=== PATIENT | male | born 1980 | race Caucasian/White ===

== ENCOUNTER 2017-03-24 03:43 | Inpatient (IN) | payer MEDICARE, MEDICAID ==
[~2017-03-24] VITALS: Ht 193 cm; Wt 107.6 kg
[2017-03-24] VITALS (58 sets, daily range): BP systolic 51–178; BP diastolic 9–124
[2017-03-24] MEDS ORDERED: normal saline 1000ml 1,000 ML IV SCH (05:07)
[2017-03-24] MEDS ORDERED: magnesium hydroxide 30ml (MOM) UD suspension PO PRN (05:10)
[2017-03-24] MEDS ORDERED: ondansetron/PF 4mg/2ml inj IV PRN (05:10)
[2017-03-24] MEDS ORDERED: acetaminophen 325mg tablet PO PRN ×2 (05:10)
[2017-03-24] MEDS ORDERED: HYDROmorphone 1 mg/ml syringe IV PRN (05:20)
[2017-03-24] MEDS ORDERED: heparin 10,000 units/1 ML INJ IV ONE (05:30)
[2017-03-24] MEDS ORDERED: acetylcysteine 200 MG/ml 4ml vial PO ONE (06:05)
[2017-03-24] MEDS ORDERED: HYDROmorphone 1 mg/ml syringe IV ONE (06:10)
[2017-03-24 06:39] LABS: BASOPHILS % (AUTO) 0 % (0-1); EOSINOPHILS # (AUTO) 0.3 X10'3 (0-0.9); HEMATOCRIT 32.4 % (42.0-52.0); HEMOGLOBIN 10.9 g/dl (14.0-17.9); LYMPHOCYTES # (AUTO) 0.4 X10'3 (1.1-4.8); LYMPHOCYTES % (AUTO) 3.2 % (21-51); MEAN CORPUSCULAR HEMOGLOBIN 29.8 PG (27.0-31.0); MEAN CORPUSCULAR HGB CONC 33.7 % (33.0-36.5); MEAN CORPUSCULAR VOLUME 88.6 FL (78-98); MEAN PLATELET VOLUME 7.9 FL (7.4-10.4); MONOCYTES # (AUTO) 0.3 X10'3 (0-0.9); MONOCYTES % (AUTO) 2.4 % (2-12); NEUTROPHILS # (AUTO) 12.5 X10'3 (1.8-7.7); NEUTROPHILS % (AUTO) 92.4 % (42-75); PLATELET COUNT 170 X10'3 (140-440); RED BLOOD COUNT 3.65 X10'6 (4.70-6.10); RED CELL DISTRIBUTION WIDTH 19.5 % (11.5-14.5); WHITE BLOOD COUNT 13.6 X10'3 (4.5-11.0)
[2017-03-24 06:52] LABS: PARTIAL THROMBOPLASTIN TIME 31 SECONDS (22-32); PROTHROMBIN TIME 10.3 SECONDS (9.0-12.0)
[2017-03-24 07:09] LABS: ALANINE AMINOTRANSFERASE 27 U/L (12-78); ALBUMIN 4.3 G/DL (3.4-5.0); ALKALINE PHOSPHATASE 53 IU/L (46-116); ANION GAP 14 (8-16); ASPARTATE AMINO TRANSFERASE 26 U/L (10-37); BILIRUBIN,TOTAL 0.5 MG/DL (0.1-1.0); BLOOD UREA NITROGEN 50 MG/DL (7-18); BUN/CREATININE RATIO 20.8 (5.4-32.0); CALCIUM 6.3 MG/DL (8.5-10.1); CHLORIDE 107 MMOL/L (99-107); GLUCOSE 136 MG/DL (70-104); MAGNESIUM 1.8 MG/DL (1.5-2.4); PHOSPHORUS 4.4 MG/DL (2.3-4.5); POTASSIUM 5.9 MMOL/L (3.5-5.1); SODIUM 141 MMOL/L (135-145); TOTAL CARBON DIOXIDE 19.7 MMOL/L (24-32); TOTAL PROTEIN 8.4 G/DL (6.4-8.2); TROPONIN I < 0.04 NG/ML (0.0-0.05); eGFR 30 ML/MIN
[2017-03-24 07:11] LABS: CREATINE KINASE 1109 U/L (39-308)
[2017-03-24] MEDS ORDERED: PRED5TAB PO (08:28)
[2017-03-24] MEDS ORDERED: HYDROmorphone inj. 0.5 MG/0.5 ML DISP.SYRIN ONE (09:23)
[2017-03-24] MEDS: sodium bicarbonate (8.4%) inj. 150 MEQ in dextrose 5%-water 1,000 ML IV SCH ×3 (09:39→20:33)
[2017-03-24] MEDS: pantoprazole 40 MG vial IV SCH (09:51)
[2017-03-24] MEDS: ACETYLCYSTEINE 200 MG/ML PO SCH ×2 (09:51→20:34)
[2017-03-24] MEDS ORDERED: albuterol 2.5 MG/3 ML nebule CONTNEB STA (09:59)
[2017-03-24] MEDS ORDERED: insulin regular, human 10 units/0.1 ml syringe IV ONE (10:00)
[2017-03-24] MEDS ORDERED: etomidate 2mg/ml inj. ONE (10:00)
[2017-03-24] MEDS ORDERED: dextrose 50%-water 50ml dispensing syringe IV ONE (10:00)
[2017-03-24] MEDS ORDERED: fentaNYL/PF 50MCG/1 ML 2ML syringe IV PRN (10:35)
[2017-03-24] MEDS ORDERED: LIDOcaine 1%/PF (10mg/ml) 5ml vial SQ ONE (10:35)
[2017-03-24] MEDS ORDERED: midazolam 2 mg/2 ml injection IV PRN (10:35)
[2017-03-24] MEDS ORDERED: heparin 1,000 UNITS/NS 500ml 500 ML ONE ×4 (10:45→13:51)
[2017-03-24] MEDS ORDERED: LIDOcaine 1%/PF (10mg/ml) 5ml vial ONE ×2 (10:45→14:13)
[2017-03-24] MEDS ORDERED: iohexol 300mg/ml 100ml inj. ONE (10:46)
[2017-03-24] MEDS ORDERED: midazolam 2 mg/2 ml injection ONE ×6 (11:12→14:32)
[2017-03-24] MEDS ORDERED: fentaNYL/PF 50MCG/1 ML 2ML syringe ONE ×3 (11:12→12:26)
[2017-03-24] MEDS ORDERED: heparin 1,000unit/ml 10ml vial 0 ML ONE (11:47)
[2017-03-24] MEDS ORDERED: tPA-cathflo 2 MG/2 ml IV flush ONE (12:33)
[2017-03-24] MEDS ORDERED: heparin 1,000 UNITS/NS 500ml 500 ML IV SCH (12:40)
[2017-03-24] MEDS ORDERED: tPA-cathflo 2mg/2ml IV flush 4 MG in normal saline 100ml IV soln 100 ML IVF ONE (12:45)
[2017-03-24] MEDS ORDERED: succinylcholine 20mg/ml inj IV ONE ×2 (13:03→16:25)
[2017-03-24] MEDS ORDERED: propofol 1000mg/100ml bottle 100 ML IV ONE ×2 (13:30→15:48)
[2017-03-24] MEDS ORDERED: ondansetron/PF 4mg/2ml inj ONE (14:03)
[2017-03-24] MEDS ORDERED: iohexol 300 MG/1 ML 50ml polymer ONE (14:19)
[2017-03-24] MEDS ORDERED: MYCO250C PO (14:30)
[2017-03-24] MEDS ORDERED: TACR1CAP28 PO ×2 (14:30)
[2017-03-24] MEDS ORDERED: GABA-532 PO (14:30)
[2017-03-24] MEDS ORDERED: etomidate 2mg/ml inj. IV ONE (16:25)
[2017-03-24] MEDS ORDERED: ondansetron/PF 4mg/2ml inj IV ONE (16:25)
[2017-03-24] MEDS ORDERED: propofol 1000mg/100ml bottle 100 ML IV PRN (16:31)
[2017-03-24] MEDS ORDERED: propofol 10mg/ml 20ml vial IV PRN (16:35)
[2017-03-24 16:46] LABS: ABG BASE EXCESS -6.3 mmol/L (-2.0-3.0); ABG HCO3 20.1 mmol/L (22.0-26.0); ABG OXYGEN SATURATION 99.2 % (95-98); ABG PCO2 (T) 43.6 mmHg (35.0-48.0); ABG PH (T) 7.281 (7.350-7.450); ABG PO2 (T) 387.5 mmHg (83-108); ALLEN'S TEST Positive; FMetHb 0.1 % (0.3-1.12); FO2Hb 99.1 % (94-100); MINUTE VOLUME 10 L/min; PEEP 5 cm H2O; RESPIRATORY RATE 16 b/min; RESPIRATORY RATE (OBSERVED) 16 b/min; TOTAL HEMOGLOBIN 10.6 G/dl (14.0-18.0)
[2017-03-24] MEDS: heparin 10,000 units/1 ML INJ IV PRN ×2 (18:00→23:37)
[2017-03-24] MEDS: midazolam 100mg in NS 100ml 100 ML IV PRN (19:49)
[2017-03-24] MEDS: FENTANYL-0.9 % NACL/PF 100 ML IV PRN (19:49)
[2017-03-24] MEDS: mycophenolate mofetil 250mg capsule PO SCH ×2 (20:00→21:50)
[2017-03-24] MEDS: predniSONE 5mg tablet PO SCH (20:34)
[2017-03-24] MEDS: gabapentin 300mg capsule PO SCH (20:34)
[2017-03-24] MEDS: tacrolimus anhydrous 1mg capsule PO SCH (21:50)
[2017-03-25] VITALS (24 sets, daily range): BP systolic 82–131; BP diastolic 48–76
[2017-03-25 02:41] LABS: BASOPHILS % (AUTO) 0.2 % (0-1); EOSINOPHILS # (AUTO) 0.3 X10'3 (0-0.9); EOSINOPHILS % (AUTO) 3.5 % (0-6); HEMATOCRIT 27.5 % (42.0-52.0); LYMPHOCYTES # (AUTO) 0.4 X10'3 (1.1-4.8); LYMPHOCYTES % (AUTO) 5.9 % (21-51); MEAN CORPUSCULAR HEMOGLOBIN 29.4 PG (27.0-31.0); MEAN CORPUSCULAR HGB CONC 32.8 % (33.0-36.5); MEAN CORPUSCULAR VOLUME 89.8 FL (78-98); MEAN PLATELET VOLUME 7.6 FL (7.4-10.4); MONOCYTES # (AUTO) 0.4 X10'3 (0-0.9); MONOCYTES % (AUTO) 4.8 % (2-12); NEUTROPHILS # (AUTO) 6.4 X10'3 (1.8-7.7); NEUTROPHILS % (AUTO) 85.6 % (42-75); PLATELET COUNT 128 X10'3 (140-440); RED BLOOD COUNT 3.07 X10'6 (4.70-6.10); RED CELL DISTRIBUTION WIDTH 19.1 % (11.5-14.5); WHITE BLOOD COUNT 7.5 X10'3 (4.5-11.0)
[2017-03-25 02:56] LABS: ABG BASE EXCESS -1.6 mmol/L (-2.0-3.0); ABG HCO3 24.1 mmol/L (22.0-26.0); ABG OXYGEN SATURATION 97.5 % (95-98); ABG PCO2 (T) 43.6 mmHg (35.0-48.0); ABG PH (T) 7.358 (7.350-7.450); ABG PO2 (T) 101.1 mmHg (83-108); ALLEN'S TEST Positive; FCOHb 0.4 % (0.5-1.5); FMetHb 0.1 % (0.3-1.12); PATIENT TEMPERATURE 36.6; PEEP 5 cm H2O; RESPIRATORY RATE 18 b/min; RESPIRATORY RATE (OBSERVED) 20 b/min; TOTAL HEMOGLOBIN 12.8 G/dl (14.0-18.0)
[2017-03-25 02:59] LABS: ALANINE AMINOTRANSFERASE 25 U/L (12-78); ALBUMIN 3.4 G/DL (3.4-5.0); ANION GAP 10 (8-16); ASPARTATE AMINO TRANSFERASE 74 U/L (10-37); BILIRUBIN,TOTAL 0.4 MG/DL (0.1-1.0); BLOOD UREA NITROGEN 44 MG/DL (7-18); BUN/CREATININE RATIO 16.9 (5.4-32.0); CHLORIDE 107 MMOL/L (99-107); GLUCOSE 132 MG/DL (70-104); MAGNESIUM 1.8 MG/DL (1.5-2.4); PHOSPHORUS 5.3 MG/DL (2.3-4.5); POTASSIUM 4.4 MMOL/L (3.5-5.1); SODIUM 144 MMOL/L (135-145); TOTAL CARBON DIOXIDE 26.9 MMOL/L (24-32); TOTAL PROTEIN 6.8 G/DL (6.4-8.2); eGFR 28 ML/MIN
[2017-03-25 03:14] LABS: ALKALINE PHOSPHATASE 43 IU/L (46-116)
[2017-03-25] MEDS: FENTANYL-0.9 % NACL/PF 100 ML IV PRN ×3 (03:14→21:53)
[2017-03-25 03:15] LABS: CALCIUM 5.6 MG/DL (8.5-10.1)
[2017-03-25] MEDS ORDERED: calcium chloride inj. 1,000 MG in normal saline 100ml IV soln 90 ML IV ONE ×2 (03:25→15:05)
[2017-03-25] MEDS ORDERED: calcium chloride 100 MG/1 ML inj IV ONE ×2 (03:46→14:55)
[2017-03-25] MEDS: sodium bicarbonate (8.4%) inj. 150 MEQ in dextrose 5%-water 1,000 ML IV SCH (06:00)
[2017-03-25] MEDS: midazolam 100mg in NS 100ml 100 ML IV PRN ×2 (08:15→21:53)
[2017-03-25] MEDS: gabapentin 300mg capsule PO SCH ×2 (08:21→19:59)
[2017-03-25] MEDS: pantoprazole 40 MG vial IV SCH (08:21)
[2017-03-25] MEDS: mycophenolate mofetil 250mg capsule PO SCH ×2 (08:22→20:00)
[2017-03-25] MEDS: predniSONE 5mg tablet PO SCH (08:22)
[2017-03-25] MEDS: ACETYLCYSTEINE 200 MG/ML PO SCH ×2 (08:22→20:01)
[2017-03-25] MEDS: tacrolimus anhydrous 1mg capsule PO SCH ×2 (08:22→20:00)
[2017-03-25 08:24] LABS: CREATINE KINASE 7451 U/L (39-308)
[2017-03-25] MEDS ORDERED: furosemide 40mg/4ml inj IV ONE (08:40)
[2017-03-25] MEDS ORDERED: vancomycin/NS 1 GM ADD-VANTAGE 250 ML IV ONE (09:10)
[2017-03-25 11:20] LABS: CLARITY,URINE Clear (Clear); COLOR,URINE Yellow (Yellow); GLUCOSE, URINE Negative (Neg); KETONES,URINE Negative (Neg); LEUKOCYTE ESTERASE ,URINE Trace (Neg); NITRITES, URINE Negative (Neg); OCCULT BLOOD,URINE Small (Neg); PROTEIN,URINE Negative (Neg); UROBILINOGEN,URINE 0.2 E.U/dL (0.2-1.0)
[2017-03-25 11:28] LABS: UA COLLECTION TYPE OTHER
[2017-03-25 11:29] LABS: BACTERIA,URINE FEW /HPF (Neg); MUCUS STRANDS NONE SEEN /LPF (Neg); RBC,URINE 0-2 /HPF (0-2); SQUAMOUS EPITHELIAL CELL,UR FEW /LPF (FEW); WBC,URINE 0-4 /HPF (0-4)
[2017-03-25] MEDS: piperacillin-tazo 2.25gm/50ml 50 ML IV SCH ×3 (12:29→19:57)
[2017-03-25] MEDS: methylPREDNISolone sod succ 125mg/2ml vial IV SCH ×2 (13:52→19:57)
[2017-03-25] MEDS: mineral oil/petrolatum ophthal oint EACHEYE SCH (19:57)
[2017-03-25] MEDS ORDERED: vancomycin/NS 1 GM ADD-VANTAGE 250 ML IV SCH (20:00)
[2017-03-25] MEDS ORDERED: mineral oil/petrolatum ophthal oint EACHEYE SCH (20:00)
[2017-03-25] MEDS ORDERED: mycophenolate mofetil 250mg capsule PO ONE (20:25)
[2017-03-25] MEDS: heparin 10,000 units/1 ML INJ IV PRN (21:50)
[2017-03-26] VITALS (22 sets, daily range): BP systolic 106–142; BP diastolic 61–79
[2017-03-26] MEDS ORDERED: vancomycin inj 1,250 MG in normal saline 250ml IV soln 250 ML IV SCH (01:00)
[2017-03-26] MEDS: methylPREDNISolone sod succ 125mg/2ml vial IV SCH ×4 (02:30→20:06)
[2017-03-26] MEDS: piperacillin-tazo 2.25gm/50ml 50 ML IV SCH ×4 (02:30→20:06)
[2017-03-26] MEDS: mineral oil/petrolatum ophthal oint EACHEYE SCH ×4 (02:30→20:06)
[2017-03-26 02:41] LABS: ABG OXYGEN SATURATION 86.3 % (95-98); ABG PCO2 (T) 46.8 mmHg (35.0-48.0); ABG PH (T) 7.329 (7.350-7.450); ABG PO2 (T) 55.1 mmHg (83-108); ALLEN'S TEST Positive; FCOHb 0.1 % (0.5-1.5); FMetHb 0.2 % (0.3-1.12); PATIENT TEMPERATURE 37.4; PEEP 8 cm H2O; RESPIRATORY RATE 18 b/min; RESPIRATORY RATE (OBSERVED) 18 b/min; TOTAL HEMOGLOBIN 10.7 G/dl (14.0-18.0)
[2017-03-26 02:58] LABS: BASOPHILS % (AUTO) 0 % (0-1); EOSINOPHILS # (AUTO) 0.1 X10'3 (0-0.9); EOSINOPHILS % (AUTO) 1.7 % (0-6); HEMATOCRIT 27.4 % (42.0-52.0); HEMOGLOBIN 9.1 g/dl (14.0-17.9); LYMPHOCYTES # (AUTO) 0.3 X10'3 (1.1-4.8); LYMPHOCYTES % (AUTO) 4.2 % (21-51); MEAN CORPUSCULAR HEMOGLOBIN 29.7 PG (27.0-31.0); MEAN CORPUSCULAR HGB CONC 33.1 % (33.0-36.5); MEAN CORPUSCULAR VOLUME 89.6 FL (78-98); MEAN PLATELET VOLUME 7.3 FL (7.4-10.4); MONOCYTES # (AUTO) 0.1 X10'3 (0-0.9); MONOCYTES % (AUTO) 1.1 % (2-12); NEUTROPHILS # (AUTO) 7.3 X10'3 (1.8-7.7); PLATELET COUNT 130 X10'3 (140-440); RED BLOOD COUNT 3.06 X10'6 (4.70-6.10); RED CELL DISTRIBUTION WIDTH 19.7 % (11.5-14.5); WHITE BLOOD COUNT 7.9 X10'3 (4.5-11.0)
[2017-03-26 03:20] LABS: ALANINE AMINOTRANSFERASE 29 U/L (12-78); ALBUMIN 3.2 G/DL (3.4-5.0); ALBUMIN/GLOBULIN RATIO 0.8 (1.1-1.5); ALKALINE PHOSPHATASE 47 IU/L (46-116); ANION GAP 15 (8-16); ASPARTATE AMINO TRANSFERASE 113 U/L (10-37); BILIRUBIN,TOTAL 0.6 MG/DL (0.1-1.0); BLOOD UREA NITROGEN 54 MG/DL (7-18); BUN/CREATININE RATIO 14.2 (5.4-32.0); CALCIUM 6.3 MG/DL (8.5-10.1); CHLORIDE 104 MMOL/L (99-107); GLUCOSE 159 MG/DL (70-104); MAGNESIUM 1.8 MG/DL (1.5-2.4); PHOSPHORUS 7.9 MG/DL (2.3-4.5); POTASSIUM 4.9 MMOL/L (3.5-5.1); SODIUM 145 MMOL/L (135-145); TOTAL CARBON DIOXIDE 26.1 MMOL/L (24-32); TOTAL PROTEIN 7.1 G/DL (6.4-8.2); eGFR 18 ML/MIN
[2017-03-26] MEDS: tacrolimus anhydrous 1mg capsule PO SCH ×2 (07:36→20:06)
[2017-03-26] MEDS: gabapentin 300mg capsule PO SCH ×2 (07:36→20:05)
[2017-03-26] MEDS: mycophenolate mofetil 250mg capsule PO SCH ×2 (07:36→20:05)
[2017-03-26] MEDS: pantoprazole 40 MG vial IV SCH (07:37)
[2017-03-26] MEDS: ACETYLCYSTEINE 200 MG/ML PO SCH ×2 (07:37→20:06)
[2017-03-26] MEDS: FENTANYL-0.9 % NACL/PF 100 ML IV PRN ×3 (07:52→21:47)
[2017-03-26] MEDS ORDERED: calcium chloride 100 MG/1 ML inj IV PRN (09:05)
[2017-03-26] MEDS: midazolam 100mg in NS 100ml 100 ML IV PRN ×2 (09:16→19:17)
[2017-03-26 09:30] LABS: CREATINE KINASE 8894 U/L (39-308)
[2017-03-26] MEDS: calcium chloride inj. 1,000 MG in normal saline 100ml IV soln 90 ML IV PRN (15:53)
[2017-03-26] MEDS: lactobacillus rhamnosus 10,000 MMU CELLS/CAPSULE PO SCH (16:57)
[2017-03-26] MEDS: chlorhexidine gluconate 15ml Cup****oral rinse MM SCH (20:05)
[2017-03-27] VITALS (24 sets, daily range): BP systolic 76–125; BP diastolic 56–75
[2017-03-27] MEDS: VANCOMYCIN LEVEL IV SCH (03:00)
[2017-03-27 03:05] LABS: ABG BASE EXCESS -3.4 mmol/L (-2.0-3.0); ABG HCO3 21.5 mmol/L (22.0-26.0); ABG OXYGEN SATURATION 92.5 % (95-98); ABG PCO2 (T) 37.4 mmHg (35.0-48.0); ABG PH (T) 7.376 (7.350-7.450); ABG PO2 (T) 66.8 mmHg (83-108); FCOHb 0.3 % (0.5-1.5); FMetHb 0.2 % (0.3-1.12); MINUTE VOLUME 10 L/min; PATIENT TEMPERATURE 36.6; PEEP 8 cm H2O; RESPIRATORY RATE 20 b/min; RESPIRATORY RATE (OBSERVED) 20 b/min; TIDAL VOLUME 483 mL; TOTAL HEMOGLOBIN 9.3 G/dl (14.0-18.0)
[2017-03-27] MEDS: piperacillin-tazo 2.25gm/50ml 50 ML IV SCH ×4 (03:09→20:05)
[2017-03-27] MEDS: methylPREDNISolone sod succ 125mg/2ml vial IV SCH ×4 (03:09→20:05)
[2017-03-27] MEDS: mineral oil/petrolatum ophthal oint EACHEYE SCH ×4 (03:09→20:05)
[2017-03-27] MEDS: midazolam 100mg in NS 100ml 100 ML IV PRN ×2 (03:10→14:24)
[2017-03-27 03:11] LABS: BASOPHILS % (AUTO) 0.4 % (0-1); EOSINOPHILS # (AUTO) 0.1 X10'3 (0-0.9); EOSINOPHILS % (AUTO) 0.7 % (0-6); HEMOGLOBIN 8.6 g/dl (14.0-17.9); LYMPHOCYTES # (AUTO) 0.2 X10'3 (1.1-4.8); LYMPHOCYTES % (AUTO) 2.5 % (21-51); MEAN CORPUSCULAR HEMOGLOBIN 29.6 PG (27.0-31.0); MEAN CORPUSCULAR HGB CONC 33.1 % (33.0-36.5); MEAN CORPUSCULAR VOLUME 89.5 FL (78-98); MONOCYTES # (AUTO) 0.2 X10'3 (0-0.9); MONOCYTES % (AUTO) 2.9 % (2-12); NEUTROPHILS # (AUTO) 7.8 X10'3 (1.8-7.7); NEUTROPHILS % (AUTO) 93.5 % (42-75); PLATELET COUNT 146 X10'3 (140-440); RED CELL DISTRIBUTION WIDTH 19.6 % (11.5-14.5); WHITE BLOOD COUNT 8.4 X10'3 (4.5-11.0)
[2017-03-27 03:36] LABS: ALANINE AMINOTRANSFERASE 32 U/L (12-78); ALBUMIN/GLOBULIN RATIO 0.8 (1.1-1.5); ALKALINE PHOSPHATASE 34 IU/L (46-116); ANION GAP 17 (8-16); ASPARTATE AMINO TRANSFERASE 90 U/L (10-37); BILIRUBIN,TOTAL 0.4 MG/DL (0.1-1.0); BLOOD UREA NITROGEN 83 MG/DL (7-18); BUN/CREATININE RATIO 15.1 (5.4-32.0); CHLORIDE 104 MMOL/L (99-107); GLUCOSE 139 MG/DL (70-104); MAGNESIUM 2.2 MG/DL (1.5-2.4); POTASSIUM 4.9 MMOL/L (3.5-5.1); SODIUM 144 MMOL/L (135-145); TOTAL CARBON DIOXIDE 23.4 MMOL/L (24-32); TOTAL PROTEIN 6.7 G/DL (6.4-8.2); VANCOMYCIN,RANDOM 30.7 UG/ML; eGFR 12 ML/MIN
[2017-03-27 03:40] LABS: PHOSPHORUS 10.1 MG/DL (2.3-4.5)
[2017-03-27] MEDS ORDERED: albuterol 2.5 MG/3 ML nebule NEB ONE (04:05)
[2017-03-27] MEDS: calcium chloride inj. 1,000 MG in normal saline 100ml IV soln 90 ML IV PRN (04:29)
[2017-03-27] MEDS: FENTANYL-0.9 % NACL/PF 100 ML IV PRN ×4 (04:29→21:51)
[2017-03-27] MEDS: mycophenolate mofetil 250mg capsule PO SCH ×2 (07:45→20:06)
[2017-03-27] MEDS: pantoprazole 40 MG vial IV SCH (07:45)
[2017-03-27] MEDS: gabapentin 300mg capsule PO SCH ×2 (07:46→20:06)
[2017-03-27] MEDS: tacrolimus anhydrous 1mg capsule PO SCH ×2 (07:46→20:06)
[2017-03-27] MEDS: chlorhexidine gluconate 15ml Cup****oral rinse MM SCH ×2 (07:46→20:05)
[2017-03-27] MEDS: lactobacillus rhamnosus 10,000 MMU CELLS/CAPSULE PO SCH ×2 (07:46→17:09)
[2017-03-27] MEDS ORDERED: vancomycin inj 1,250 MG in normal saline 250ml IV soln 250 ML IV PRN (08:00)
[2017-03-27] MEDS ORDERED: heparin 1,000unit/ml 10ml vial 10 ML IV ONE (08:43)
[2017-03-27] MEDS ORDERED: albumin (human) 25% 100ml IV 100 ML IV PRN (08:45)
[2017-03-27] MEDS ORDERED: heparin 1,000 units/ml 10ml inj IV ONE (08:45)
[2017-03-27] MEDS ORDERED: epoetin 20,000 units/ml inj IV ONE (08:45)
[2017-03-27] MEDS ORDERED: heparin 1,000 units/ml 10ml inj HE ONE ×2 (08:50)
[2017-03-27] MEDS ORDERED: MANNITOL 20% IV ONE (09:05)
[2017-03-27] MEDS ORDERED: VANCOMYCIN LEVEL IV ONE (12:30)
[2017-03-27] MEDS: heparin 10,000 units/1 ML INJ IV PRN (17:04)
[2017-03-28] VITALS (24 sets, daily range): BP systolic 85–167; BP diastolic 53–69
[2017-03-28] MEDS: midazolam 100mg in NS 100ml 100 ML IV PRN ×3 (01:30→22:59)
[2017-03-28] MEDS: mineral oil/petrolatum ophthal oint EACHEYE SCH ×4 (02:15→20:57)
[2017-03-28] MEDS: piperacillin-tazo 2.25gm/50ml 50 ML IV SCH ×4 (02:15→20:57)
[2017-03-28] MEDS: methylPREDNISolone sod succ 125mg/2ml vial IV SCH ×4 (02:15→20:57)
[2017-03-28] MEDS: VANCOMYCIN LEVEL IV SCH (03:00)
[2017-03-28 03:09] LABS: BASOPHILS % (AUTO) 0 % (0-1); EOSINOPHILS # (AUTO) 0.1 X10'3 (0-0.9); EOSINOPHILS % (AUTO) 1.1 % (0-6); HEMATOCRIT 25.2 % (42.0-52.0); HEMOGLOBIN 8.5 g/dl (14.0-17.9); LYMPHOCYTES # (AUTO) 0.2 X10'3 (1.1-4.8); LYMPHOCYTES % (AUTO) 2.4 % (21-51); MEAN CORPUSCULAR HEMOGLOBIN 29.4 PG (27.0-31.0); MEAN CORPUSCULAR HGB CONC 33.6 % (33.0-36.5); MEAN CORPUSCULAR VOLUME 87.6 FL (78-98); MEAN PLATELET VOLUME 7.7 FL (7.4-10.4); MONOCYTES # (AUTO) 0.5 X10'3 (0-0.9); MONOCYTES % (AUTO) 5.4 % (2-12); NEUTROPHILS # (AUTO) 8.3 X10'3 (1.8-7.7); NEUTROPHILS % (AUTO) 91.1 % (42-75); PLATELET COUNT 150 X10'3 (140-440); RED BLOOD COUNT 2.87 X10'6 (4.70-6.10); RED CELL DISTRIBUTION WIDTH 19.9 % (11.5-14.5); WHITE BLOOD COUNT 9.1 X10'3 (4.5-11.0)
[2017-03-28 03:25] LABS: ALANINE AMINOTRANSFERASE 28 U/L (12-78); ALBUMIN/GLOBULIN RATIO 0.8 (1.1-1.5); ALKALINE PHOSPHATASE 36 IU/L (46-116); ANION GAP 16 (8-16); ASPARTATE AMINO TRANSFERASE 55 U/L (10-37); BILIRUBIN,TOTAL 0.5 MG/DL (0.1-1.0); BLOOD UREA NITROGEN 77 MG/DL (7-18); BUN/CREATININE RATIO 14.8 (5.4-32.0); CALCIUM 6.6 MG/DL (8.5-10.1); CHLORIDE 102 MMOL/L (99-107); GLUCOSE 153 MG/DL (70-104); MAGNESIUM 2.1 MG/DL (1.5-2.4); PHOSPHORUS 8.4 MG/DL (2.3-4.5); POTASSIUM 4.7 MMOL/L (3.5-5.1); SODIUM 144 MMOL/L (135-145); TOTAL CARBON DIOXIDE 26.2 MMOL/L (24-32); TOTAL PROTEIN 6.7 G/DL (6.4-8.2); VANCOMYCIN,RANDOM 19.7 UG/ML; eGFR 12 ML/MIN
[2017-03-28 04:10] LABS: ABG HCO3 23.2 mmol/L (22.0-26.0); ABG OXYGEN SATURATION 88.7 % (95-98); ABG PCO2 (T) 47.4 mmHg (35.0-48.0); ABG PH (T) 7.309 (7.350-7.450); ABG PO2 (T) 65.5 mmHg (83-108); FCOHb 0.3 % (0.5-1.5); FO2Hb 88.4 % (94-100); MINUTE VOLUME 8 L/min; PATIENT TEMPERATURE 37.1; PEEP 8 cm H2O; RESPIRATORY RATE 20 b/min; RESPIRATORY RATE (OBSERVED) 21 b/min; TIDAL VOLUME 389 mL; TOTAL HEMOGLOBIN 9.6 G/dl (14.0-18.0)
[2017-03-28] MEDS: FENTANYL-0.9 % NACL/PF 100 ML IV PRN ×3 (04:59→22:54)
[2017-03-28] MEDS: mycophenolate mofetil 250mg capsule PO SCH ×2 (08:00→20:57)
[2017-03-28] MEDS ORDERED: heparin 1,000unit/ml 10ml vial 10 ML IV ONE (08:52)
[2017-03-28] MEDS ORDERED: heparin 1,000 units/ml 10ml inj IV ONE (08:55)
[2017-03-28] MEDS ORDERED: epoetin 20,000 units/ml inj IV ONE (08:55)
[2017-03-28] MEDS ORDERED: albumin (human) 25% 100ml IV 100 ML IV PRN (08:55)
[2017-03-28] MEDS ORDERED: heparin 1,000 units/ml 10ml inj HE ONE ×2 (09:00)
[2017-03-28] MEDS: chlorhexidine gluconate 15ml Cup****oral rinse MM SCH (09:28)
[2017-03-28] MEDS: lactobacillus rhamnosus 10,000 MMU CELLS/CAPSULE PO SCH ×2 (09:28→18:06)
[2017-03-28] MEDS: gabapentin 300mg capsule PO SCH ×2 (09:28→20:58)
[2017-03-28] MEDS: tacrolimus anhydrous 1mg capsule PO SCH ×2 (09:30→20:58)
[2017-03-28] MEDS: pantoprazole 40 MG vial IV SCH (09:34)
[2017-03-28 13:56] LABS: PROTHROMBIN TIME 10.7 SECONDS (9.0-12.0)
[2017-03-28] MEDS ORDERED: warfarin 7.5mg tablet PO ONE (21:00)
[2017-03-29] VITALS (29 sets, daily range): BP systolic 85–146; BP diastolic 50–98
[2017-03-29 01:02] LABS: INR 1.1 INR; PROTHROMBIN TIME 10.9 SECONDS (9.0-12.0)
[2017-03-29] MEDS: piperacillin-tazo 2.25gm/50ml 50 ML IV SCH ×4 (02:46→20:55)
[2017-03-29] MEDS: methylPREDNISolone sod succ 125mg/2ml vial IV SCH (02:46)
[2017-03-29] MEDS: mineral oil/petrolatum ophthal oint EACHEYE SCH ×4 (02:46→20:54)
[2017-03-29] MEDS: VANCOMYCIN LEVEL IV SCH (02:47)
[2017-03-29 04:00] LABS: ABG BASE EXCESS -2.3 mmol/L (-2.0-3.0); ABG HCO3 22.5 mmol/L (22.0-26.0); ABG PCO2 (T) 37.9 mmHg (35.0-48.0); ABG PH (T) 7.389 (7.350-7.450); ABG PO2 (T) 70.3 mmHg (83-108); ALLEN'S TEST Positive; MINUTE VOLUME 13 L/min; PATIENT TEMPERATURE 36.7; PEEP 10 cm H2O; RESPIRATORY RATE 20 b/min; RESPIRATORY RATE (OBSERVED) 22 b/min
[2017-03-29 04:01] LABS: ABG OXYGEN SATURATION 92.5 % (95-98); FMetHb 0.2 % (0.3-1.12); FO2Hb 92.3 % (94-100); TOTAL HEMOGLOBIN 8.1 G/dl (14.0-18.0)
[2017-03-29 04:06] LABS: BASOPHILS % (AUTO) 0 % (0-1); EOSINOPHILS # (AUTO) 0.1 X10'3 (0-0.9); EOSINOPHILS % (AUTO) 0.8 % (0-6); HEMOGLOBIN 7.5 g/dl (14.0-17.9); LYMPHOCYTES # (AUTO) 0.4 X10'3 (1.1-4.8); LYMPHOCYTES % (AUTO) 3.6 % (21-51); MEAN CORPUSCULAR HEMOGLOBIN 29.5 PG (27.0-31.0); MEAN CORPUSCULAR HGB CONC 33.9 % (33.0-36.5); MEAN PLATELET VOLUME 8.4 FL (7.4-10.4); MONOCYTES # (AUTO) 0.6 X10'3 (0-0.9); MONOCYTES % (AUTO) 6.1 % (2-12); NEUTROPHILS # (AUTO) 9.3 X10'3 (1.8-7.7); NEUTROPHILS % (AUTO) 89.5 % (42-75); PLATELET COUNT 142 X10'3 (140-440); RED BLOOD COUNT 2.52 X10'6 (4.70-6.10); RED CELL DISTRIBUTION WIDTH 19.5 % (11.5-14.5); WHITE BLOOD COUNT 10.4 X10'3 (4.5-11.0)
[2017-03-29 04:40] LABS: ALANINE AMINOTRANSFERASE 30 U/L (12-78); ALBUMIN/GLOBULIN RATIO 0.9 (1.1-1.5); ALKALINE PHOSPHATASE 29 IU/L (46-116); ANION GAP 15 (8-16); ASPARTATE AMINO TRANSFERASE 44 U/L (10-37); BILIRUBIN,TOTAL 0.7 MG/DL (0.1-1.0); BLOOD UREA NITROGEN 96 MG/DL (7-18); BUN/CREATININE RATIO 17.1 (5.4-32.0); CHLORIDE 101 MMOL/L (99-107); GLUCOSE 156 MG/DL (70-104); MAGNESIUM 2.3 MG/DL (1.5-2.4); PHOSPHORUS 7.9 MG/DL (2.3-4.5); POTASSIUM 4.6 MMOL/L (3.5-5.1); PREALBUMIN 22.1 MG/DL (19-36); SODIUM 142 MMOL/L (135-145); TOTAL CARBON DIOXIDE 26.1 MMOL/L (24-32); TOTAL PROTEIN 6.5 G/DL (6.4-8.2); VANCOMYCIN,RANDOM 14.7 UG/ML; eGFR 11 ML/MIN
[2017-03-29] MEDS ORDERED: calcium chloride 100 MG/1 ML inj IV ONE ×2 (05:00→05:21)
[2017-03-29] MEDS: FENTANYL-0.9 % NACL/PF 100 ML IV PRN ×3 (05:22→18:52)
[2017-03-29] MEDS: lactobacillus rhamnosus 10,000 MMU CELLS/CAPSULE PO SCH ×2 (07:30→16:33)
[2017-03-29] MEDS: mycophenolate mofetil 250mg capsule PO SCH ×2 (08:00→20:00)
[2017-03-29] MEDS: gabapentin 300mg capsule PO SCH ×2 (08:00→20:00)
[2017-03-29] MEDS: tacrolimus anhydrous 1mg capsule PO SCH ×2 (08:00→21:00)
[2017-03-29] MEDS: multivitamins, therapeutics tablet PO SCH (08:00)
[2017-03-29 11:13] LABS: HBSAG SCREEN Negative (Negative)
[2017-03-29] MEDS: midazolam 100mg in NS 100ml 100 ML IV PRN ×2 (11:58→18:53)
[2017-03-29] MEDS: pantoprazole 40MG/NS 100ML BAG 100 ML IV SCH ×3 (12:00→20:55)
[2017-03-29] MEDS: albuterol 2.5 MG/3 ML nebule IH SCH ×4 (12:23→23:49)
[2017-03-29 14:27] LABS: PARTIAL THROMBOPLASTIN TIME 46 SECONDS (22-32)
[2017-03-29] MEDS ORDERED: albumin (human) 25% 100ml IV 100 ML IV PRN (14:45)
[2017-03-29] MEDS ORDERED: epoetin 20,000 units/ml inj IV ONE (14:45)
[2017-03-29] MEDS ORDERED: heparin 1,000 units/ml 10ml inj HE ONE ×2 (14:50)
[2017-03-29] MEDS ORDERED: mannitol 20% IV solution 250ml 62.5 ML IV ONE ×2 (15:20→15:30)
[2017-03-29] MEDS: methylPREDNISolone sod succ/PF 40mg inj. IV SCH (16:15)
[2017-03-29 20:22] LABS: BASOPHILS % (AUTO) 0.2 % (0-1); EOSINOPHILS # (AUTO) 0.1 X10'3 (0-0.9); EOSINOPHILS % (AUTO) 0.8 % (0-6); HEMATOCRIT 27.1 % (42.0-52.0); HEMOGLOBIN 9.2 g/dl (14.0-17.9); LYMPHOCYTES # (AUTO) 0.4 X10'3 (1.1-4.8); LYMPHOCYTES % (AUTO) 2.9 % (21-51); MEAN CORPUSCULAR HEMOGLOBIN 30.1 PG (27.0-31.0); MEAN CORPUSCULAR HGB CONC 34.1 % (33.0-36.5); MEAN CORPUSCULAR VOLUME 88.4 FL (78-98); MEAN PLATELET VOLUME 8.1 FL (7.4-10.4); MONOCYTES # (AUTO) 0.9 X10'3 (0-0.9); MONOCYTES % (AUTO) 6.1 % (2-12); NEUTROPHILS # (AUTO) 13.1 X10'3 (1.8-7.7); PLATELET COUNT 164 X10'3 (140-440); RED BLOOD COUNT 3.07 X10'6 (4.70-6.10); RED CELL DISTRIBUTION WIDTH 19.4 % (11.5-14.5); WHITE BLOOD COUNT 14.6 X10'3 (4.5-11.0)
[2017-03-29 20:35] LABS: ALANINE AMINOTRANSFERASE 39 U/L (12-78); ALBUMIN 3.9 G/DL (3.4-5.0); ALKALINE PHOSPHATASE 35 IU/L (46-116); ANION GAP 16 (8-16); ASPARTATE AMINO TRANSFERASE 41 U/L (10-37); BILIRUBIN,TOTAL 1.7 MG/DL (0.1-1.0); BLOOD UREA NITROGEN 65 MG/DL (7-18); BUN/CREATININE RATIO 17.1 (5.4-32.0); CALCIUM 7.9 MG/DL (8.5-10.1); CHLORIDE 98 MMOL/L (99-107); GLUCOSE 176 MG/DL (70-104); POTASSIUM 3.6 MMOL/L (3.5-5.1); SODIUM 140 MMOL/L (135-145); TOTAL CARBON DIOXIDE 26.3 MMOL/L (24-32); TOTAL PROTEIN 7.8 G/DL (6.4-8.2); eGFR 18 ML/MIN
[2017-03-29 20:45] LABS: NUCLEATED RED BLOOD CELLS 4 /100WBC (0-0); TOTAL CELLS COUNTED 100
[2017-03-29 20:48] LABS: ANISOCYTOSIS 2+; PLATELET ESTIMATE NORMAL
[2017-03-29 20:51] LABS: LARGE PLATELETS FEW; POLYCHROMASIA FEW; SCHISTOCYTES FEW
[2017-03-29 20:52] LABS: TOXIC GRANULATION 2+
[2017-03-30] VITALS (27 sets, daily range): BP systolic 84–133; BP diastolic 51–69
[2017-03-30] MEDS: methylPREDNISolone sod succ/PF 40mg inj. IV SCH ×4 (00:38→23:49)
[2017-03-30] MEDS: pantoprazole 40MG/NS 100ML BAG 100 ML IV SCH ×6 (01:38→23:05)
[2017-03-30] MEDS: mineral oil/petrolatum ophthal oint EACHEYE SCH ×4 (01:39→20:11)
[2017-03-30] MEDS: piperacillin-tazo 2.25gm/50ml 50 ML IV SCH ×4 (01:39→20:14)
[2017-03-30] MEDS: VANCOMYCIN LEVEL IV SCH (03:00)
[2017-03-30] MEDS: FENTANYL-0.9 % NACL/PF 100 ML IV PRN ×4 (03:10→21:13)
[2017-03-30 03:20] LABS: ABG BASE EXCESS -1.7 mmol/L (-2.0-3.0); ABG HCO3 23.1 mmol/L (22.0-26.0); ABG OXYGEN SATURATION 84.3 % (95-98); ABG PCO2 (T) 39.5 mmHg (35.0-48.0); ABG PH (T) 7.386 (7.350-7.450); ABG PO2 (T) 53.4 mmHg (83-108); ALLEN'S TEST Positive; FO2Hb 84.3 % (94-100); MINUTE VOLUME 13 L/min; PATIENT TEMPERATURE 37.4; PEEP 10 cm H2O; RESPIRATORY RATE 20 b/min; RESPIRATORY RATE (OBSERVED) 20 b/min; TOTAL HEMOGLOBIN 8.3 G/dl (14.0-18.0)
[2017-03-30] MEDS: albuterol 2.5 MG/3 ML nebule IH SCH ×6 (03:24→23:32)
[2017-03-30 03:38] LABS: BASOPHILS % (AUTO) 0 % (0-1); EOSINOPHILS % (AUTO) 0 % (0-6); HEMOGLOBIN 7.4 g/dl (14.0-17.9); LYMPHOCYTES # (AUTO) 0.6 X10'3 (1.1-4.8); LYMPHOCYTES % (AUTO) 5.5 % (21-51); MEAN CORPUSCULAR HEMOGLOBIN 29.9 PG (27.0-31.0); MEAN CORPUSCULAR HGB CONC 34.3 % (33.0-36.5); MEAN CORPUSCULAR VOLUME 87.2 FL (78-98); MEAN PLATELET VOLUME 8.8 FL (7.4-10.4); MONOCYTES # (AUTO) 0.7 X10'3 (0-0.9); MONOCYTES % (AUTO) 6.5 % (2-12); NEUTROPHILS # (AUTO) 9.5 X10'3 (1.8-7.7); PLATELET COUNT 146 X10'3 (140-440); RED BLOOD COUNT 2.48 X10'6 (4.70-6.10); RED CELL DISTRIBUTION WIDTH 19.3 % (11.5-14.5); WHITE BLOOD COUNT 10.8 X10'3 (4.5-11.0)
[2017-03-30 03:48] LABS: INR 1.8 INR; PROTHROMBIN TIME 17.8 SECONDS (9.0-12.0)
[2017-03-30 03:56] LABS: ALANINE AMINOTRANSFERASE 39 U/L (12-78); ALBUMIN 3.2 G/DL (3.4-5.0); ALKALINE PHOSPHATASE 27 IU/L (46-116); ANION GAP 14 (8-16); ASPARTATE AMINO TRANSFERASE 34 U/L (10-37); BILIRUBIN,TOTAL 1.5 MG/DL (0.1-1.0); BLOOD UREA NITROGEN 84 MG/DL (7-18); BUN/CREATININE RATIO 17.1 (5.4-32.0); CALCIUM 6.9 MG/DL (8.5-10.1); CHLORIDE 100 MMOL/L (99-107); GLUCOSE 140 MG/DL (70-104); MAGNESIUM 2.1 MG/DL (1.5-2.4); PHOSPHORUS 6.6 MG/DL (2.3-4.5); SODIUM 140 MMOL/L (135-145); TOTAL CARBON DIOXIDE 25.8 MMOL/L (24-32); TOTAL PROTEIN 6.5 G/DL (6.4-8.2); VANCOMYCIN,RANDOM 10.4 UG/ML; eGFR 13 ML/MIN
[2017-03-30 04:08] LABS: NUCLEATED RED BLOOD CELLS 5 /100WBC (0-0); TOTAL CELLS COUNTED 100
[2017-03-30 04:09] LABS: ANISOCYTOSIS 2+; PLATELET ESTIMATE NORMAL; TOXIC GRANULATION 2+
[2017-03-30 04:10] LABS: POLYCHROMASIA FEW; SCHISTOCYTES FEW
[2017-03-30 04:11] LABS: SPHEROCYTES FEW; TEAR DROP CELLS FEW
[2017-03-30] MEDS ORDERED: CISatracurium besylate inj. 200 MG in normal saline 250ml IV soln 180 ML IV PRN (04:16)
[2017-03-30] MEDS ORDERED: CISatracurium **Bolus** 2 mg/ml inj IV PRN (04:20)
[2017-03-30 04:24] LABS: HEMATOCRIT 21.6 % (42.0-52.0)
[2017-03-30] MEDS ORDERED: CISatracurium 10mg/ml inj.***infusion only IV ONE (04:25)
[2017-03-30] MEDS ORDERED: CISatracurium **Bolus** 2 mg/ml inj IV ONE (04:26)
[2017-03-30 05:21] LABS: ABG BASE EXCESS -2.5 mmol/L (-2.0-3.0); ABG HCO3 23.2 mmol/L (22.0-26.0); ABG OXYGEN SATURATION 80.9 % (95-98); ABG PH (T) 7.332 (7.350-7.450); ABG PO2 (T) 52.9 mmHg (83-108); FCOHb 0.3 % (0.5-1.5); FMetHb 0.3 % (0.3-1.12); FO2Hb 80.4 % (94-100); MINUTE VOLUME 10 L/min; PATIENT TEMPERATURE 37.4; PEEP 20 cm H2O; RESPIRATORY RATE 24 b/min; RESPIRATORY RATE (OBSERVED) 24 b/min; TOTAL HEMOGLOBIN 8.3 G/dl (14.0-18.0)
[2017-03-30] MEDS: midazolam 100mg in NS 100ml 100 ML IV PRN ×3 (05:49→23:05)
[2017-03-30] MEDS: lactobacillus rhamnosus 10,000 MMU CELLS/CAPSULE PO SCH ×2 (07:30→16:36)
[2017-03-30] MEDS: tacrolimus anhydrous 1mg capsule PO SCH ×2 (08:00→20:11)
[2017-03-30] MEDS: gabapentin 300mg capsule PO SCH ×2 (08:00→20:00)
[2017-03-30] MEDS: predniSONE 5mg tablet PO SCH (08:00)
[2017-03-30] MEDS: methylnaltrexone br 12mg/0.6ml inj***SubQ only SQ SCH (08:00)
[2017-03-30] MEDS: multivitamins, therapeutics tablet PO SCH (08:00)
[2017-03-30] MEDS: mycophenolate mofetil 250mg capsule PO SCH ×2 (08:00→20:00)
[2017-03-30] MEDS ORDERED: heparin 1,000 units/ml 10ml inj HE ONE ×2 (09:40)
[2017-03-30] MEDS ORDERED: magnesium 4gm in 100ml NS 100 ML IV PRN (10:55)
[2017-03-30] MEDS ORDERED: potassium Cl 20mEq/100mL bag 100 ML IV PRN (10:55)
[2017-03-30] MEDS ORDERED: sodium phosphate inj. 30 MMOL in normal saline 250ml IV soln 250 ML IV PRN (10:55)
[2017-03-30] MEDS ORDERED: heparin 10,000 units/1 ML INJ IV ONE (10:55)
[2017-03-30] MEDS ORDERED: calcium chloride inj. 1,000 MG in normal saline 100ml IV soln 100 ML IV PRN (10:55)
[2017-03-30 11:31] LABS: ABG BASE EXCESS -5.7 mmol/L (-2.0-3.0); ABG HCO3 21.7 mmol/L (22.0-26.0); ABG OXYGEN SATURATION 90.1 % (95-98); ABG PCO2 (T) 51.8 mmHg (35.0-48.0); ABG PO2 (T) 70.3 mmHg (83-108); ALLEN'S TEST Positive; FCOHb 0.3 % (0.5-1.5); FMetHb 0.2 % (0.3-1.12); FO2Hb 89.6 % (94-100); MINUTE VOLUME 13 L/min; PEEP 20 cm H2O; RESPIRATORY RATE 24 b/min; RESPIRATORY RATE (OBSERVED) 24 b/min; TOTAL HEMOGLOBIN 9.7 G/dl (14.0-18.0)
[2017-03-30 11:47] LABS: INR 1.9 INR; PARTIAL THROMBOPLASTIN TIME 52 SECONDS (22-32)
[2017-03-30] MEDS: Duosol 4K/3 Ca (w/calcium) 5,000 ML HE SCH ×5 (14:34→23:52)
[2017-03-30 16:39] LABS: BASOPHILS % (AUTO) 0 % (0-1); EOSINOPHILS # (AUTO) 0.2 X10'3 (0-0.9); EOSINOPHILS % (AUTO) 1.1 % (0-6); HEMATOCRIT 25.9 % (42.0-52.0); HEMOGLOBIN 8.9 g/dl (14.0-17.9); LYMPHOCYTES # (AUTO) 0.4 X10'3 (1.1-4.8); LYMPHOCYTES % (AUTO) 2.3 % (21-51); MEAN CORPUSCULAR HEMOGLOBIN 30.4 PG (27.0-31.0); MEAN CORPUSCULAR HGB CONC 34.2 % (33.0-36.5); MEAN CORPUSCULAR VOLUME 88.9 FL (78-98); MEAN PLATELET VOLUME 8.2 FL (7.4-10.4); MONOCYTES # (AUTO) 1.2 X10'3 (0-0.9); MONOCYTES % (AUTO) 7.8 % (2-12); NEUTROPHILS % (AUTO) 88.8 % (42-75); PLATELET COUNT 152 X10'3 (140-440); RED BLOOD COUNT 2.91 X10'6 (4.70-6.10); RED CELL DISTRIBUTION WIDTH 18.2 % (11.5-14.5); WHITE BLOOD COUNT 15.8 X10'3 (4.5-11.0)
[2017-03-30 16:58] LABS: ALBUMIN 3.3 G/DL (3.4-5.0); ANION GAP 21 (8-16); BLOOD UREA NITROGEN 93 MG/DL (7-18); CHLORIDE 99 MMOL/L (99-107); GLUCOSE 156 MG/DL (70-104); MAGNESIUM 2.3 MG/DL (1.5-2.4); PHOSPHORUS 9.8 MG/DL (2.3-4.5); POTASSIUM 4.7 MMOL/L (3.5-5.1); SODIUM 141 MMOL/L (135-145); TOTAL CARBON DIOXIDE 21.4 MMOL/L (24-32); eGFR 11 ML/MIN
[2017-03-30] MEDS ORDERED: insulin Lispro (HumaLOG) vial - multi-dose SQ SCH (17:35)
[2017-03-30] MEDS ORDERED: dextrose 50%-water 50ml dispensing syringe IV PRN ×2 (17:35)
[2017-03-30] MEDS: insulin glargine (Lantus) pen - multi-dose SQ SCH (21:00)
[2017-03-30] MEDS: calcium chloride inj. 1,000 MG in normal saline 100ml IV soln 90 ML IV PRN (22:06)
[2017-03-30 23:52] LABS: BASOPHILS % (AUTO) 0 % (0-1); EOSINOPHILS # (AUTO) 0.2 X10'3 (0-0.9); EOSINOPHILS % (AUTO) 1.4 % (0-6); HEMATOCRIT 24.8 % (42.0-52.0); HEMOGLOBIN 7.8 g/dl (14.0-17.9); LYMPHOCYTES # (AUTO) 0.4 X10'3 (1.1-4.8); LYMPHOCYTES % (AUTO) 2.5 % (21-51); MEAN CORPUSCULAR HEMOGLOBIN 28.1 PG (27.0-31.0); MEAN CORPUSCULAR HGB CONC 31.6 % (33.0-36.5); MEAN CORPUSCULAR VOLUME 88.8 FL (78-98); MEAN PLATELET VOLUME 8.7 FL (7.4-10.4); MONOCYTES # (AUTO) 0.9 X10'3 (0-0.9); MONOCYTES % (AUTO) 5.9 % (2-12); NEUTROPHILS # (AUTO) 13.9 X10'3 (1.8-7.7); NEUTROPHILS % (AUTO) 90.2 % (42-75); PLATELET COUNT 146 X10'3 (140-440); RED BLOOD COUNT 2.79 X10'6 (4.70-6.10); RED CELL DISTRIBUTION WIDTH 19.3 % (11.5-14.5); WHITE BLOOD COUNT 15.4 X10'3 (4.5-11.0)
[2017-03-31] VITALS (24 sets, daily range): BP systolic 90–165; BP diastolic 47–86
[2017-03-31 00:04] LABS: ALBUMIN 3.2 G/DL (3.4-5.0); ANION GAP 14 (8-16); BLOOD UREA NITROGEN 74 MG/DL (7-18); BUN/CREATININE RATIO 16.1 (5.4-32.0); CHLORIDE 102 MMOL/L (99-107); GLUCOSE 146 MG/DL (70-104); MAGNESIUM 2.2 MG/DL (1.5-2.4); PHOSPHORUS 6.9 MG/DL (2.3-4.5); POTASSIUM 4.6 MMOL/L (3.5-5.1); SODIUM 141 MMOL/L (135-145); TOTAL CARBON DIOXIDE 24.9 MMOL/L (24-32); eGFR 14 ML/MIN
[2017-03-31] MEDS: FENTANYL-0.9 % NACL/PF 100 ML IV PRN ×5 (01:32→22:26)
[2017-03-31] MEDS: piperacillin-tazo 2.25gm/50ml 50 ML IV SCH ×4 (01:32→20:14)
[2017-03-31] MEDS: mineral oil/petrolatum ophthal oint EACHEYE SCH ×4 (01:32→20:13)
[2017-03-31] MEDS: Duosol 4K/3 Ca (w/calcium) 5,000 ML HE SCH ×5 (03:09→21:08)
[2017-03-31] MEDS: pantoprazole 40MG/NS 100ML BAG 100 ML IV SCH ×5 (03:33→22:25)
[2017-03-31] MEDS: albuterol 2.5 MG/3 ML nebule IH SCH ×6 (03:37→23:21)
[2017-03-31 03:56] LABS: ABG BASE EXCESS -3.8 mmol/L (-2.0-3.0); ABG HCO3 23.8 mmol/L (22.0-26.0); ABG OXYGEN SATURATION 90.7 % (95-98); ABG PCO2 (T) 54.6 mmHg (35.0-48.0); ABG PH (T) 7.254 (7.350-7.450); ABG PO2 (T) 67.7 mmHg (83-108); ALLEN'S TEST Positive; FCOHb 0.3 % (0.5-1.5); FMetHb 0.2 % (0.3-1.12); FO2Hb 90.2 % (94-100); MINUTE VOLUME 6 L/min; PATIENT TEMPERATURE 36.2; PEEP 18 cm H2O; RESPIRATORY RATE 24 b/min; RESPIRATORY RATE (OBSERVED) 24 b/min
[2017-03-31 05:16] LABS: BASOPHILS % (AUTO) 0 % (0-1); EOSINOPHILS % (AUTO) 0 % (0-6); HEMATOCRIT 25.2 % (42.0-52.0); HEMOGLOBIN 8.5 g/dl (14.0-17.9); LYMPHOCYTES # (AUTO) 0.3 X10'3 (1.1-4.8); MEAN CORPUSCULAR HEMOGLOBIN 30.3 PG (27.0-31.0); MEAN CORPUSCULAR HGB CONC 33.8 % (33.0-36.5); MEAN CORPUSCULAR VOLUME 89.9 FL (78-98); MEAN PLATELET VOLUME 8.9 FL (7.4-10.4); MONOCYTES # (AUTO) 0.7 X10'3 (0-0.9); MONOCYTES % (AUTO) 4.5 % (2-12); NEUTROPHILS # (AUTO) 13.5 X10'3 (1.8-7.7); NEUTROPHILS % (AUTO) 93.5 % (42-75); PLATELET COUNT 147 X10'3 (140-440); RED BLOOD COUNT 2.81 X10'6 (4.70-6.10); RED CELL DISTRIBUTION WIDTH 18.9 % (11.5-14.5); WHITE BLOOD COUNT 14.4 X10'3 (4.5-11.0)
[2017-03-31 05:18] LABS: HEMOGLOBIN A1C 5.3 % (4.5-6.2)
[2017-03-31 05:23] LABS: ALANINE AMINOTRANSFERASE 68 U/L (12-78); ALBUMIN 3.3 G/DL (3.4-5.0); ALBUMIN/GLOBULIN RATIO 0.9 (1.1-1.5); ALKALINE PHOSPHATASE 31 IU/L (46-116); ANION GAP 14 (8-16); ASPARTATE AMINO TRANSFERASE 39 U/L (10-37); BILIRUBIN,TOTAL 1.5 MG/DL (0.1-1.0); BLOOD UREA NITROGEN 63 MG/DL (7-18); BUN/CREATININE RATIO 15.4 (5.4-32.0); CALCIUM 7.9 MG/DL (8.5-10.1); CHLORIDE 100 MMOL/L (99-107); GLUCOSE 152 MG/DL (70-104); MAGNESIUM 2.1 MG/DL (1.5-2.4); PHOSPHORUS 6.3 MG/DL (2.3-4.5); POTASSIUM 4.6 MMOL/L (3.5-5.1); SODIUM 140 MMOL/L (135-145); TOTAL CARBON DIOXIDE 25.7 MMOL/L (24-32); VANCOMYCIN,RANDOM 18.4 UG/ML; eGFR 16 ML/MIN
[2017-03-31] MEDS: midazolam 100mg in NS 100ml 100 ML IV PRN ×4 (05:48→22:26)
[2017-03-31] MEDS: VANCOMYCIN LEVEL IV SCH (06:00)
[2017-03-31] MEDS: mycophenolate mofetil 250mg capsule PO SCH ×2 (06:52→20:00)
[2017-03-31] MEDS: lactobacillus rhamnosus 10,000 MMU CELLS/CAPSULE PO SCH ×2 (06:52→13:37)
[2017-03-31] MEDS: tacrolimus anhydrous 1mg capsule PO SCH ×2 (06:53→20:15)
[2017-03-31] MEDS: predniSONE 5mg tablet PO SCH (06:53)
[2017-03-31] MEDS: gabapentin 300mg capsule PO SCH ×2 (06:53→20:00)
[2017-03-31] MEDS: multivitamins, therapeutics tablet PO SCH (06:54)
[2017-03-31 06:59] LABS: INR 2.4 INR
[2017-03-31] MEDS: methylPREDNISolone sod succ/PF 40mg inj. IV SCH ×2 (07:18→17:20)
[2017-03-31 10:09] LABS: HEMATOCRIT 24.1 % (42.0-52.0); HEMOGLOBIN 8.3 g/dl (14.0-17.9); MEAN CORPUSCULAR HEMOGLOBIN 30.7 PG (27.0-31.0); MEAN CORPUSCULAR HGB CONC 34.4 % (33.0-36.5); MEAN CORPUSCULAR VOLUME 89.2 FL (78-98); MEAN PLATELET VOLUME 8.5 FL (7.4-10.4); PLATELET COUNT 142 X10'3 (140-440); RED BLOOD COUNT 2.71 X10'6 (4.70-6.10); RED CELL DISTRIBUTION WIDTH 19.3 % (11.5-14.5); WHITE BLOOD COUNT 14.5 X10'3 (4.5-11.0)
[2017-03-31 10:21] LABS: ALBUMIN 3.2 G/DL (3.4-5.0); ANION GAP 12 (8-16); BLOOD UREA NITROGEN 54 MG/DL (7-18); BUN/CREATININE RATIO 15.4 (5.4-32.0); CHLORIDE 103 MMOL/L (99-107); GLUCOSE 143 MG/DL (70-104); POTASSIUM 4.8 MMOL/L (3.5-5.1); SODIUM 141 MMOL/L (135-145); TOTAL CARBON DIOXIDE 25.9 MMOL/L (24-32); eGFR 20 ML/MIN
[2017-03-31 10:22] LABS: PHOSPHORUS 5.5 MG/DL (2.3-4.5)
[2017-03-31 10:41] LABS: NUCLEATED RED BLOOD CELLS 3 /100WBC (0-0); TOTAL CELLS COUNTED 100
[2017-03-31 10:42] LABS: ANISOCYTOSIS 2+; PLATELET ESTIMATE NORMAL; POLYCHROMASIA 2+; TOXIC GRANULATION 2+
[2017-03-31 10:44] LABS: HYPOCHROMASIA 1+; TEAR DROP CELLS 1+
[2017-03-31] MEDS ORDERED: [UNRECOGNIZED DRUG - REMARK] IV SCH ×4 (16:30)
[2017-03-31 17:10] LABS: BASOPHILS # (AUTO) 0.1 X10'3 (0-0.2); BASOPHILS % (AUTO) 0.5 % (0-1); EOSINOPHILS # (AUTO) 0.1 X10'3 (0-0.9); EOSINOPHILS % (AUTO) 0.9 % (0-6); HEMATOCRIT 24.3 % (42.0-52.0); HEMOGLOBIN 8.2 g/dl (14.0-17.9); LYMPHOCYTES # (AUTO) 0.6 X10'3 (1.1-4.8); LYMPHOCYTES % (AUTO) 3.9 % (21-51); MEAN CORPUSCULAR HEMOGLOBIN 30.4 PG (27.0-31.0); MEAN CORPUSCULAR VOLUME 89.5 FL (78-98); MEAN PLATELET VOLUME 8.5 FL (7.4-10.4); MONOCYTES # (AUTO) 0.9 X10'3 (0-0.9); NEUTROPHILS # (AUTO) 13.6 X10'3 (1.8-7.7); NEUTROPHILS % (AUTO) 88.7 % (42-75); PLATELET COUNT 150 X10'3 (140-440); RED BLOOD COUNT 2.71 X10'6 (4.70-6.10); RED CELL DISTRIBUTION WIDTH 19.4 % (11.5-14.5); WHITE BLOOD COUNT 15.3 X10'3 (4.5-11.0)
[2017-03-31 17:24] LABS: ALBUMIN 3.1 G/DL (3.4-5.0); ANION GAP 14 (8-16); BLOOD UREA NITROGEN 48 MG/DL (7-18); CHLORIDE 103 MMOL/L (99-107); GLUCOSE 119 MG/DL (70-104); PHOSPHORUS 3.5 MG/DL (2.3-4.5); POTASSIUM 4.2 MMOL/L (3.5-5.1); SODIUM 141 MMOL/L (135-145); TOTAL CARBON DIOXIDE 23.6 MMOL/L (24-32); eGFR 22 ML/MIN
[2017-03-31] MEDS ORDERED: [UNRECOGNIZED DRUG - REMARK] IV SCH ×4 (17:30)
[2017-03-31] MEDS: insulin glargine (Lantus) pen - multi-dose SQ SCH (20:15)
[2017-03-31 23:52] LABS: BASOPHILS % (AUTO) 0 % (0-1); EOSINOPHILS # (AUTO) 0.2 X10'3 (0-0.9); EOSINOPHILS % (AUTO) 1.7 % (0-6); HEMATOCRIT 22.5 % (42.0-52.0); HEMOGLOBIN 7.8 g/dl (14.0-17.9); LYMPHOCYTES # (AUTO) 0.4 X10'3 (1.1-4.8); LYMPHOCYTES % (AUTO) 3.1 % (21-51); MEAN CORPUSCULAR HEMOGLOBIN 30.8 PG (27.0-31.0); MEAN CORPUSCULAR HGB CONC 34.7 % (33.0-36.5); MEAN CORPUSCULAR VOLUME 88.7 FL (78-98); MEAN PLATELET VOLUME 8.2 FL (7.4-10.4); MONOCYTES # (AUTO) 0.7 X10'3 (0-0.9); MONOCYTES % (AUTO) 5.4 % (2-12); NEUTROPHILS # (AUTO) 12.2 X10'3 (1.8-7.7); NEUTROPHILS % (AUTO) 89.8 % (42-75); PLATELET COUNT 146 X10'3 (140-440); RED BLOOD COUNT 2.53 X10'6 (4.70-6.10); RED CELL DISTRIBUTION WIDTH 19.3 % (11.5-14.5); WHITE BLOOD COUNT 13.6 X10'3 (4.5-11.0)
[2017-04-01] VITALS (24 sets, daily range): BP systolic 96–187; BP diastolic 45–97
[2017-04-01 00:11] LABS: ANION GAP 8 (8-16); BLOOD UREA NITROGEN 42 MG/DL (7-18); CHLORIDE 103 MMOL/L (99-107); GLUCOSE 138 MG/DL (70-104); PHOSPHORUS 2.9 MG/DL (2.3-4.5); SODIUM 139 MMOL/L (135-145); TOTAL CARBON DIOXIDE 27.9 MMOL/L (24-32); eGFR 25 ML/MIN
[2017-04-01] MEDS: Duosol 4K/3 Ca (w/calcium) 5,000 ML HE SCH ×8 (00:12→20:43)
[2017-04-01] MEDS: methylPREDNISolone sod succ/PF 40mg inj. IV SCH ×3 (00:12→16:03)
[2017-04-01] MEDS: mineral oil/petrolatum ophthal oint EACHEYE SCH ×4 (02:11→20:22)
[2017-04-01] MEDS: piperacillin-tazo 2.25gm/50ml 50 ML IV SCH ×4 (02:11→20:21)
[2017-04-01] MEDS: VANCOMYCIN LEVEL IV SCH (03:00)
[2017-04-01] MEDS: albuterol 2.5 MG/3 ML nebule IH SCH ×6 (03:16→23:46)
[2017-04-01] MEDS: pantoprazole 40MG/NS 100ML BAG 100 ML IV SCH ×5 (03:36→23:58)
[2017-04-01] MEDS: midazolam 100mg in NS 100ml 100 ML IV PRN ×5 (03:37→23:58)
[2017-04-01 03:51] LABS: ABG BASE EXCESS 0.5 mmol/L (-2.0-3.0); ABG HCO3 22.7 mmol/L (22.0-26.0); ABG OXYGEN SATURATION 97.9 % (95-98); ABG PCO2 (T) 26.8 mmHg (35.0-48.0); ABG PH (T) 7.543 (7.350-7.450); ABG PO2 (T) 106.2 mmHg (83-108); ALLEN'S TEST Positive; FCOHb 0.3 % (0.5-1.5); FLOW 1 L/min; FMetHb 0.3 % (0.3-1.12); FO2Hb 97.3 % (94-100); PATIENT TEMPERATURE 36.4; PEEP 14 cm H2O; RESPIRATORY RATE 24 b/min; TOTAL HEMOGLOBIN 8.4 G/dl (14.0-18.0)
[2017-04-01 05:34] LABS: BASOPHILS % (AUTO) 0 % (0-1); EOSINOPHILS # (AUTO) 0.2 X10'3 (0-0.9); EOSINOPHILS % (AUTO) 1.4 % (0-6); HEMOGLOBIN 7.5 g/dl (14.0-17.9); LYMPHOCYTES # (AUTO) 0.4 X10'3 (1.1-4.8); LYMPHOCYTES % (AUTO) 3.1 % (21-51); MEAN CORPUSCULAR HEMOGLOBIN 30.7 PG (27.0-31.0); MEAN CORPUSCULAR VOLUME 87.5 FL (78-98); MEAN PLATELET VOLUME 8.6 FL (7.4-10.4); MONOCYTES # (AUTO) 0.7 X10'3 (0-0.9); MONOCYTES % (AUTO) 5.5 % (2-12); NEUTROPHILS # (AUTO) 10.9 X10'3 (1.8-7.7); PLATELET COUNT 144 X10'3 (140-440); RED BLOOD COUNT 2.46 X10'6 (4.70-6.10); RED CELL DISTRIBUTION WIDTH 19.3 % (11.5-14.5); WHITE BLOOD COUNT 12.1 X10'3 (4.5-11.0)
[2017-04-01 05:36] LABS: HEMATOCRIT 21.5 % (42.0-52.0)
[2017-04-01 05:47] LABS: ALANINE AMINOTRANSFERASE 87 U/L (12-78); ALBUMIN 2.9 G/DL (3.4-5.0); ALBUMIN/GLOBULIN RATIO 0.9 (1.1-1.5); ALKALINE PHOSPHATASE 32 IU/L (46-116); ANION GAP 10 (8-16); ASPARTATE AMINO TRANSFERASE 47 U/L (10-37); BILIRUBIN,TOTAL 1.3 MG/DL (0.1-1.0); BLOOD UREA NITROGEN 39 MG/DL (7-18); BUN/CREATININE RATIO 16.3 (5.4-32.0); CALCIUM 8.1 MG/DL (8.5-10.1); CHLORIDE 103 MMOL/L (99-107); GLUCOSE 159 MG/DL (70-104); MAGNESIUM 2.1 MG/DL (1.5-2.4); PHOSPHORUS 3.3 MG/DL (2.3-4.5); POTASSIUM 3.9 MMOL/L (3.5-5.1); SODIUM 140 MMOL/L (135-145); TOTAL CARBON DIOXIDE 27.4 MMOL/L (24-32); eGFR 30 ML/MIN
[2017-04-01] MEDS: lactobacillus rhamnosus 10,000 MMU CELLS/CAPSULE PO SCH ×2 (07:07→14:05)
[2017-04-01] MEDS: mycophenolate mofetil 250mg capsule PO SCH ×2 (07:07→19:27)
[2017-04-01] MEDS: gabapentin 300mg capsule PO SCH ×2 (07:08→19:27)
[2017-04-01] MEDS: methylnaltrexone br 12mg/0.6ml inj***SubQ only SQ SCH (07:08)
[2017-04-01] MEDS: predniSONE 5mg tablet PO SCH (07:08)
[2017-04-01] MEDS: tacrolimus anhydrous 1mg capsule PO SCH ×2 (07:08→19:27)
[2017-04-01] MEDS: FENTANYL-0.9 % NACL/PF 100 ML IV PRN ×5 (07:17→23:58)
[2017-04-01 10:44] LABS: BASOPHILS # (AUTO) 0.1 X10'3 (0-0.2); BASOPHILS % (AUTO) 0.5 % (0-1); EOSINOPHILS % (AUTO) 0.4 % (0-6); HEMOGLOBIN 7.3 g/dl (14.0-17.9); LYMPHOCYTES # (AUTO) 0.3 X10'3 (1.1-4.8); LYMPHOCYTES % (AUTO) 2.9 % (21-51); MEAN CORPUSCULAR HEMOGLOBIN 30.5 PG (27.0-31.0); MEAN CORPUSCULAR HGB CONC 34.1 % (33.0-36.5); MEAN CORPUSCULAR VOLUME 89.4 FL (78-98); MEAN PLATELET VOLUME 8.7 FL (7.4-10.4); MONOCYTES # (AUTO) 0.5 X10'3 (0-0.9); MONOCYTES % (AUTO) 4.4 % (2-12); NEUTROPHILS # (AUTO) 10.4 X10'3 (1.8-7.7); NEUTROPHILS % (AUTO) 91.8 % (42-75); PLATELET COUNT 155 X10'3 (140-440); RED BLOOD COUNT 2.39 X10'6 (4.70-6.10); RED CELL DISTRIBUTION WIDTH 19.1 % (11.5-14.5); WHITE BLOOD COUNT 11.4 X10'3 (4.5-11.0)
[2017-04-01 10:47] LABS: HEMATOCRIT 21.3 % (42.0-52.0)
[2017-04-01] MEDS ORDERED: [UNRECOGNIZED DRUG - REMARK] IV SCH ×4 (10:50)
[2017-04-01 10:56] LABS: ANISOCYTOSIS 2+; NUCLEATED RED BLOOD CELLS 1 /100WBC (0-0); PLATELET ESTIMATE NORMAL; TOTAL CELLS COUNTED 100
[2017-04-01 10:57] LABS: ALBUMIN 2.7 G/DL (3.4-5.0); ANION GAP 9 (8-16); BLOOD UREA NITROGEN 37 MG/DL (7-18); BUN/CREATININE RATIO 16.8 (5.4-32.0); CHLORIDE 104 MMOL/L (99-107); GLUCOSE 254 MG/DL (70-104); PHOSPHORUS 3.4 MG/DL (2.3-4.5); POLYCHROMASIA 1+; POTASSIUM 4.1 MMOL/L (3.5-5.1); SODIUM 140 MMOL/L (135-145); TOTAL CARBON DIOXIDE 27.3 MMOL/L (24-32); eGFR 34 ML/MIN
[2017-04-01] MEDS ORDERED: [UNRECOGNIZED DRUG - REMARK] IV SCH (13:16)
[2017-04-01] MEDS ORDERED: insulin regular, human vial - multi-dose SQ SCH (13:55)
[2017-04-01 16:55] LABS: BASOPHILS # (AUTO) 0.2 X10'3 (0-0.2); BASOPHILS % (AUTO) 1.3 % (0-1); EOSINOPHILS % (AUTO) 0.3 % (0-6); HEMATOCRIT 23.2 % (42.0-52.0); HEMOGLOBIN 7.8 g/dl (14.0-17.9); LYMPHOCYTES # (AUTO) 0.6 X10'3 (1.1-4.8); LYMPHOCYTES % (AUTO) 4.1 % (21-51); MEAN CORPUSCULAR HEMOGLOBIN 30.1 PG (27.0-31.0); MEAN CORPUSCULAR HGB CONC 33.4 % (33.0-36.5); MEAN CORPUSCULAR VOLUME 90.2 FL (78-98); MEAN PLATELET VOLUME 8.6 FL (7.4-10.4); MONOCYTES # (AUTO) 0.9 X10'3 (0-0.9); MONOCYTES % (AUTO) 6.2 % (2-12); NEUTROPHILS # (AUTO) 12.9 X10'3 (1.8-7.7); NEUTROPHILS % (AUTO) 88.1 % (42-75); PLATELET COUNT 155 X10'3 (140-440); RED BLOOD COUNT 2.57 X10'6 (4.70-6.10); RED CELL DISTRIBUTION WIDTH 19.2 % (11.5-14.5); WHITE BLOOD COUNT 14.6 X10'3 (4.5-11.0)
[2017-04-01 17:09] LABS: ALBUMIN 2.9 G/DL (3.4-5.0); ANION GAP 8 (8-16); BLOOD UREA NITROGEN 34 MG/DL (7-18); BUN/CREATININE RATIO 16.2 (5.4-32.0); CHLORIDE 104 MMOL/L (99-107); GLUCOSE 229 MG/DL (70-104); MAGNESIUM 2.1 MG/DL (1.5-2.4); PHOSPHORUS 3.9 MG/DL (2.3-4.5); POTASSIUM 4.1 MMOL/L (3.5-5.1); SODIUM 141 MMOL/L (135-145); TOTAL CARBON DIOXIDE 28.7 MMOL/L (24-32); eGFR 36 ML/MIN
[2017-04-01] MEDS: heparin 10,000 units/1 ML INJ IV PRN (17:22)
[2017-04-01] MEDS: insulin glargine (Lantus) pen - multi-dose SQ SCH (21:00)
[2017-04-01 23:02] LABS: BASOPHILS # (AUTO) 0.1 X10'3 (0-0.2); BASOPHILS % (AUTO) 0.9 % (0-1); EOSINOPHILS # (AUTO) 0.3 X10'3 (0-0.9); EOSINOPHILS % (AUTO) 1.8 % (0-6); HEMATOCRIT 23.4 % (42.0-52.0); HEMOGLOBIN 7.7 g/dl (14.0-17.9); LYMPHOCYTES # (AUTO) 0.4 X10'3 (1.1-4.8); LYMPHOCYTES % (AUTO) 3.1 % (21-51); MEAN CORPUSCULAR HEMOGLOBIN 30.1 PG (27.0-31.0); MEAN CORPUSCULAR HGB CONC 32.9 % (33.0-36.5); MEAN CORPUSCULAR VOLUME 91.5 FL (78-98); MEAN PLATELET VOLUME 8.4 FL (7.4-10.4); MONOCYTES # (AUTO) 0.8 X10'3 (0-0.9); MONOCYTES % (AUTO) 5.6 % (2-12); NEUTROPHILS # (AUTO) 12.7 X10'3 (1.8-7.7); NEUTROPHILS % (AUTO) 88.6 % (42-75); PLATELET COUNT 154 X10'3 (140-440); RED BLOOD COUNT 2.56 X10'6 (4.70-6.10); RED CELL DISTRIBUTION WIDTH 19.3 % (11.5-14.5); WHITE BLOOD COUNT 14.4 X10'3 (4.5-11.0)
[2017-04-01 23:22] LABS: ALBUMIN 2.9 G/DL (3.4-5.0); ANION GAP 9 (8-16); BLOOD UREA NITROGEN 30 MG/DL (7-18); BUN/CREATININE RATIO 15.8 (5.4-32.0); CHLORIDE 104 MMOL/L (99-107); GLUCOSE 167 MG/DL (70-104); MAGNESIUM 1.9 MG/DL (1.5-2.4); PHOSPHORUS 4.3 MG/DL (2.3-4.5); POTASSIUM 4.4 MMOL/L (3.5-5.1); SODIUM 141 MMOL/L (135-145); TOTAL CARBON DIOXIDE 28.2 MMOL/L (24-32); eGFR 40 ML/MIN
[2017-04-02] VITALS (24 sets, daily range): BP systolic 105–167; BP diastolic 52–102
[2017-04-02] MEDS: methylPREDNISolone sod succ/PF 40mg inj. IV SCH ×4 (00:55→23:34)
[2017-04-02] MEDS: piperacillin-tazo 2.25gm/50ml 50 ML IV SCH ×4 (02:21→20:56)
[2017-04-02] MEDS: mineral oil/petrolatum ophthal oint EACHEYE SCH ×4 (02:21→19:33)
[2017-04-02] MEDS: VANCOMYCIN LEVEL IV SCH (03:00)
[2017-04-02] MEDS: FENTANYL-0.9 % NACL/PF 100 ML IV PRN ×2 (03:02→07:57)
[2017-04-02] MEDS: albuterol 2.5 MG/3 ML nebule IH SCH ×3 (03:32→11:23)
[2017-04-02] MEDS: pantoprazole 40MG/NS 100ML BAG 100 ML IV SCH ×2 (04:10→09:28)
[2017-04-02 04:16] LABS: ABG HCO3 23.2 mmol/L (22.0-26.0); ABG OXYGEN SATURATION 97.3 % (95-98); ABG PCO2 (T) 40.8 mmHg (35.0-48.0); ABG PH (T) 7.372 (7.350-7.450); ALLEN'S TEST Positive; FCOHb 0.3 % (0.5-1.5); FMetHb 0.3 % (0.3-1.12); FO2Hb 96.7 % (94-100); MINUTE VOLUME 14 L/min; PATIENT TEMPERATURE 36.6; PEEP 6 cm H2O; RESPIRATORY RATE 14 b/min; RESPIRATORY RATE (OBSERVED) 17 b/min; TOTAL HEMOGLOBIN 9.1 G/dl (14.0-18.0)
[2017-04-02] MEDS: midazolam 100mg in NS 100ml 100 ML IV PRN (04:35)
[2017-04-02 04:41] LABS: BASOPHILS # (AUTO) 0.1 X10'3 (0-0.2); BASOPHILS % (AUTO) 0.8 % (0-1); EOSINOPHILS % (AUTO) 0.2 % (0-6); HEMATOCRIT 23.5 % (42.0-52.0); HEMOGLOBIN 7.9 g/dl (14.0-17.9); LYMPHOCYTES # (AUTO) 0.6 X10'3 (1.1-4.8); LYMPHOCYTES % (AUTO) 3.3 % (21-51); MEAN CORPUSCULAR HEMOGLOBIN 30.7 PG (27.0-31.0); MEAN CORPUSCULAR HGB CONC 33.7 % (33.0-36.5); MEAN CORPUSCULAR VOLUME 91.1 FL (78-98); MEAN PLATELET VOLUME 8.4 FL (7.4-10.4); MONOCYTES % (AUTO) 5.8 % (2-12); NEUTROPHILS % (AUTO) 89.9 % (42-75); PLATELET COUNT 154 X10'3 (140-440); RED BLOOD COUNT 2.58 X10'6 (4.70-6.10); RED CELL DISTRIBUTION WIDTH 19.3 % (11.5-14.5); WHITE BLOOD COUNT 16.6 X10'3 (4.5-11.0)
[2017-04-02 05:07] LABS: ANISOCYTOSIS 2+; NUCLEATED RED BLOOD CELLS 1 /100WBC (0-0); TOTAL CELLS COUNTED 100
[2017-04-02 05:08] LABS: PLATELET ESTIMATE NORMAL; POLYCHROMASIA FEW; TEAR DROP CELLS FEW
[2017-04-02] MEDS: heparin 10,000 units/1 ML INJ IV PRN ×2 (05:09→23:33)
[2017-04-02 05:11] LABS: ANION GAP 10 (8-16); BLOOD UREA NITROGEN 36 MG/DL (7-18); BUN/CREATININE RATIO 16.4 (5.4-32.0); CHLORIDE 105 MMOL/L (99-107); GLUCOSE 160 MG/DL (70-104); POTASSIUM 4.7 MMOL/L (3.5-5.1); SODIUM 141 MMOL/L (135-145); TOTAL CARBON DIOXIDE 26.2 MMOL/L (24-32)
[2017-04-02 05:12] LABS: ALANINE AMINOTRANSFERASE 102 U/L (12-78); ALBUMIN 2.9 G/DL (3.4-5.0); ALBUMIN/GLOBULIN RATIO 0.9 (1.1-1.5); ALKALINE PHOSPHATASE 33 IU/L (46-116); ASPARTATE AMINO TRANSFERASE 42 U/L (10-37); CALCIUM 7.8 MG/DL (8.5-10.1); MAGNESIUM 2.1 MG/DL (1.5-2.4); PHOSPHORUS 4.6 MG/DL (2.3-4.5); PREALBUMIN 41.4 MG/DL (19-36); TOTAL PROTEIN 6.2 G/DL (6.4-8.2); eGFR 34 ML/MIN
[2017-04-02 06:56] LABS: VANCOMYCIN,TROUGH 3.8 UG/ML (6.0-14.0)
[2017-04-02] MEDS: lactobacillus rhamnosus 10,000 MMU CELLS/CAPSULE PO SCH ×2 (07:34→17:30)
[2017-04-02] MEDS: tacrolimus anhydrous 1mg capsule PO SCH ×2 (07:35→20:57)
[2017-04-02] MEDS: predniSONE 5mg tablet PO SCH (07:35)
[2017-04-02] MEDS: mycophenolate mofetil 250mg capsule PO SCH ×2 (07:35→20:57)
[2017-04-02] MEDS: gabapentin 300mg capsule PO SCH ×2 (07:36→20:57)
[2017-04-02] MEDS ORDERED: heparin 1,000 units/ml 10ml inj HE ONE ×2 (08:00)
[2017-04-02] MEDS ORDERED: ipratropium/albuterol 3ml nebule NEB PRN (11:40)
[2017-04-02] MEDS ORDERED: HYDROmorphone inj. 0.5 MG/0.5 ML DISP.SYRIN ONE (12:09)
[2017-04-02] MEDS: HYDROmorphone inj. 0.5 MG/0.5 ML DISP.SYRIN IV PRN ×3 (13:43→22:05)
[2017-04-02 13:48] LABS: TRIGLYCERIDES 99 MG/DL (20-135)
[2017-04-02] MEDS ORDERED: insulin Lispro (HumaLOG) vial - multi-dose SQ SCH (13:55)
[2017-04-02] MEDS ORDERED: insulin regular, human vial - multi-dose SQ SCH (13:55)
[2017-04-02] MEDS ORDERED: dextrose ORAL solution 15 GM/59 ML bottle PO PRN ×2 (13:55)
[2017-04-02] MEDS ORDERED: MESSAGE TO PHARMACY PO ONE (13:55)
[2017-04-02] MEDS ORDERED: glucagon, human recombinant 1mg kit SUBCUT PRN (13:55)
[2017-04-02] MEDS ORDERED: dextrose 50%-water 50ml dispensing syringe IV PRN ×2 (13:55)
[2017-04-02 17:02] LABS: ALBUMIN 2.9 G/DL (3.4-5.0); ANION GAP 6 (8-16); BLOOD UREA NITROGEN 47 MG/DL (7-18); BUN/CREATININE RATIO 17.4 (5.4-32.0); CHLORIDE 107 MMOL/L (99-107); GLUCOSE 169 MG/DL (70-104); MAGNESIUM 2.1 MG/DL (1.5-2.4); POTASSIUM 4.5 MMOL/L (3.5-5.1); SODIUM 142 MMOL/L (135-145); TOTAL CARBON DIOXIDE 28.6 MMOL/L (24-32); eGFR 27 ML/MIN
[2017-04-02] MEDS ORDERED: insulin glargine (Lantus) pen - multi-dose SQ SCH (21:00)
[2017-04-02] MEDS: insulin glargine (Lantus) pen - multi-dose SQ SCH (21:00)
[2017-04-03] VITALS (24 sets, daily range): BP systolic 42–158; BP diastolic 30–93
[2017-04-03] MEDS: mineral oil/petrolatum ophthal oint EACHEYE SCH (00:45)
[2017-04-03] MEDS: piperacillin-tazo 2.25gm/50ml 50 ML IV SCH ×2 (01:22→08:47)
[2017-04-03] MEDS: HYDROmorphone inj. 0.5 MG/0.5 ML DISP.SYRIN IV PRN ×2 (02:36→04:40)
[2017-04-03] MEDS: VANCOMYCIN LEVEL IV SCH (02:54)
[2017-04-03 06:01] LABS: BASOPHILS % (AUTO) 0.1 % (0-1); EOSINOPHILS # (AUTO) 0.4 X10'3 (0-0.9); EOSINOPHILS % (AUTO) 1.9 % (0-6); HEMATOCRIT 22.5 % (42.0-52.0); HEMOGLOBIN 7.6 g/dl (14.0-17.9); LYMPHOCYTES # (AUTO) 0.6 X10'3 (1.1-4.8); LYMPHOCYTES % (AUTO) 2.9 % (21-51); MEAN CORPUSCULAR HEMOGLOBIN 30.9 PG (27.0-31.0); MEAN CORPUSCULAR HGB CONC 33.8 % (33.0-36.5); MEAN CORPUSCULAR VOLUME 91.5 FL (78-98); MEAN PLATELET VOLUME 8.8 FL (7.4-10.4); MONOCYTES # (AUTO) 1.2 X10'3 (0-0.9); MONOCYTES % (AUTO) 5.6 % (2-12); NEUTROPHILS # (AUTO) 18.9 X10'3 (1.8-7.7); NEUTROPHILS % (AUTO) 89.5 % (42-75); PLATELET COUNT 172 X10'3 (140-440); RED BLOOD COUNT 2.46 X10'6 (4.70-6.10); WHITE BLOOD COUNT 21.1 X10'3 (4.5-11.0)
[2017-04-03 06:12] LABS: ALANINE AMINOTRANSFERASE 175 U/L (12-78); ALBUMIN 2.8 G/DL (3.4-5.0); ALBUMIN/GLOBULIN RATIO 0.9 (1.1-1.5); ALKALINE PHOSPHATASE 43 IU/L (46-116); ANION GAP 8 (8-16); ASPARTATE AMINO TRANSFERASE 83 U/L (10-37); BILIRUBIN,TOTAL 0.9 MG/DL (0.1-1.0); BLOOD UREA NITROGEN 72 MG/DL (7-18); BUN/CREATININE RATIO 24.8 (5.4-32.0); CALCIUM 7.4 MG/DL (8.5-10.1); CHLORIDE 106 MMOL/L (99-107); GLUCOSE 126 MG/DL (70-104); MAGNESIUM 2.1 MG/DL (1.5-2.4); PHOSPHORUS 4.7 MG/DL (2.3-4.5); POTASSIUM 5.2 MMOL/L (3.5-5.1); SODIUM 140 MMOL/L (135-145); TOTAL CARBON DIOXIDE 25.6 MMOL/L (24-32); TOTAL PROTEIN 5.9 G/DL (6.4-8.2); eGFR 24 ML/MIN
[2017-04-03 07:18] LABS: LYMPHOCYTES % (MANUAL) 2 % (21-51); METAMYLEOCYTES% (MANUAL) 4 % (0-0); MONOCYTES % (MANUAL) 7 % (2-12); MYELOCYTES % (MANUAL) 3 % (0-0); NEUTROPHILS % (MANUAL) 84 % (42-75); NUCLEATED RED BLOOD CELLS 2 /100WBC (0-0); PLATELET ESTIMATE NORMAL; TOTAL CELLS COUNTED 100
[2017-04-03 07:19] LABS: ANISOCYTOSIS 2+; POLYCHROMASIA 2+; TEAR DROP CELLS 1+; TOXIC GRANULATION 1+
[2017-04-03] MEDS: methylnaltrexone br 12mg/0.6ml inj***SubQ only SQ SCH (08:00)
[2017-04-03] MEDS ORDERED: pantoprazole 40 MG vial IV SCH (08:00)
[2017-04-03] MEDS: lactobacillus rhamnosus 10,000 MMU CELLS/CAPSULE PO SCH ×2 (08:47→17:38)
[2017-04-03] MEDS: methylPREDNISolone sod succ/PF 40mg inj. IV SCH ×2 (08:47→15:42)
[2017-04-03] MEDS: mycophenolate mofetil 250mg capsule PO SCH ×2 (08:48→19:41)
[2017-04-03] MEDS: predniSONE 5mg tablet PO SCH (08:48)
[2017-04-03] MEDS: tacrolimus anhydrous 1mg capsule PO SCH ×2 (08:48→19:42)
[2017-04-03] MEDS: gabapentin 300mg capsule PO SCH ×2 (09:09→19:41)
[2017-04-03] MEDS ORDERED: epoetin 20,000 units/ml inj IV ONE (09:10)
[2017-04-03] MEDS ORDERED: HYDROmorphone/NS 1 mg/ml CADD 50 ML IV SCH (10:05)
[2017-04-03] MEDS ORDERED: HYDROcodone/acetaminophen 10/325mg tab PO PRN (11:00)
[2017-04-03] MEDS ORDERED: apixaban 5mg tablet PO ONE (11:00)
[2017-04-03] MEDS: HYDROcodone/acetaminophen 10/325mg tab PO PRN ×3 (11:41→19:53)
[2017-04-03] MEDS ORDERED: fentaNYL 50MCG/HOUR patch.TD72 TD SCH (12:00)
[2017-04-03] MEDS: albumin (human) 25% 100ml IV 100 ML IV PRN ×2 (12:22→12:29)
[2017-04-03] MEDS: cefTAZidime inj 2 GM in normal saline 100ml IV soln 100 ML IV SCH (14:02)
[2017-04-03] MEDS ORDERED: vancomycin/NS 1 GM ADD-VANTAGE 250 ML IV ONE (18:24)
[2017-04-03] MEDS: pantoprazole 40mg Tablet.DR PO SCH (19:41)
[2017-04-03] MEDS: apixaban 2.5mg tablet PO SCH (19:42)
[2017-04-03] MEDS: insulin glargine (Lantus) pen - multi-dose SQ SCH (20:15)
[2017-04-04] VITALS (38 sets, daily range): BP systolic 77–134; BP diastolic 46–83
[2017-04-04] MEDS: HYDROcodone/acetaminophen 10/325mg tab PO PRN ×5 (01:32→19:53)
[2017-04-04] MEDS: methylPREDNISolone sod succ/PF 40mg inj. IV SCH ×3 (01:33→15:38)
[2017-04-04] MEDS: VANCOMYCIN LEVEL IV SCH (02:55)
[2017-04-04 04:29] LABS: ALANINE AMINOTRANSFERASE 153 U/L (12-78); ALBUMIN 2.9 G/DL (3.4-5.0); ALBUMIN/GLOBULIN RATIO 1.2 (1.1-1.5); ALKALINE PHOSPHATASE 31 IU/L (46-116); ANION GAP 7 (8-16); ASPARTATE AMINO TRANSFERASE 45 U/L (10-37); BILIRUBIN,TOTAL 0.7 MG/DL (0.1-1.0); BLOOD UREA NITROGEN 68 MG/DL (7-18); BUN/CREATININE RATIO 26.2 (5.4-32.0); CALCIUM 6.7 MG/DL (8.5-10.1); CHLORIDE 102 MMOL/L (99-107); GLUCOSE 128 MG/DL (70-104); PHOSPHORUS 4.8 MG/DL (2.3-4.5); POTASSIUM 4.3 MMOL/L (3.5-5.1); SODIUM 136 MMOL/L (135-145); TOTAL PROTEIN 5.4 G/DL (6.4-8.2); VANCOMYCIN,RANDOM 21.9 UG/ML; eGFR 28 ML/MIN
[2017-04-04 07:04] LABS: BASOPHILS % (AUTO) 0.1 % (0-1); EOSINOPHILS # (AUTO) 0.2 X10'3 (0-0.9); EOSINOPHILS % (AUTO) 1.4 % (0-6); LYMPHOCYTES # (AUTO) 0.7 X10'3 (1.1-4.8); LYMPHOCYTES % (AUTO) 3.9 % (21-51); MEAN CORPUSCULAR HEMOGLOBIN 30.7 PG (27.0-31.0); MEAN CORPUSCULAR HGB CONC 34.3 % (33.0-36.5); MEAN CORPUSCULAR VOLUME 89.4 FL (78-98); MEAN PLATELET VOLUME 8.4 FL (7.4-10.4); MONOCYTES # (AUTO) 0.8 X10'3 (0-0.9); MONOCYTES % (AUTO) 4.7 % (2-12); NEUTROPHILS # (AUTO) 15.1 X10'3 (1.8-7.7); NEUTROPHILS % (AUTO) 89.9 % (42-75); PLATELET COUNT 153 X10'3 (140-440); RED BLOOD COUNT 1.94 X10'6 (4.70-6.10); RED CELL DISTRIBUTION WIDTH 20.6 % (11.5-14.5); WHITE BLOOD COUNT 16.9 X10'3 (4.5-11.0)
[2017-04-04 07:09] LABS: HEMATOCRIT 17.3 % (42.0-52.0); HEMOGLOBIN 5.9 g/dl (14.0-17.9)
[2017-04-04 07:15] LABS: BANDS% (MANUAL) 3 % (0-10); LYMPHOCYTES % (MANUAL) 2 % (21-51); MONOCYTES % (MANUAL) 2 % (2-12); NEUTROPHILS % (MANUAL) 91 % (42-75); NUCLEATED RED BLOOD CELLS 4 /100WBC (0-0); PLATELET ESTIMATE NORMAL; TOTAL CELLS COUNTED 100
[2017-04-04 07:16] LABS: ANISOCYTOSIS 3+; HYPOCHROMASIA 1+; POLYCHROMASIA 1+; TOXIC GRANULATION 1+
[2017-04-04] MEDS: apixaban 2.5mg tablet PO SCH ×2 (08:00→19:52)
[2017-04-04] MEDS: gabapentin 300mg capsule PO SCH ×2 (10:03→19:52)
[2017-04-04] MEDS: pantoprazole 40mg Tablet.DR PO SCH ×2 (10:03→19:52)
[2017-04-04] MEDS: multivitamins, therapeutics tablet PO SCH (10:03)
[2017-04-04] MEDS: lactobacillus rhamnosus 10,000 MMU CELLS/CAPSULE PO SCH ×2 (10:03→17:31)
[2017-04-04] MEDS: predniSONE 5mg tablet PO SCH (10:03)
[2017-04-04] MEDS: tacrolimus anhydrous 1mg capsule PO SCH ×2 (10:04→19:53)
[2017-04-04] MEDS: mycophenolate mofetil 250mg capsule PO SCH ×2 (10:04→19:52)
[2017-04-04] MEDS: fentaNYL 75 MCG/hour patch.TD72 TD SCH (12:51)
[2017-04-04] MEDS ORDERED: LIDOcaine 1%/PF (10mg/ml) 5ml vial SQ ONE (13:40)
[2017-04-04] MEDS ORDERED: fentaNYL/PF 50MCG/1 ML 2ML syringe IV PRN (13:40)
[2017-04-04] MEDS ORDERED: midazolam 2 mg/2 ml injection IV PRN (13:40)
[2017-04-04] MEDS ORDERED: normal saline 1000ml 1,000 ML IV SCH (13:40)
[2017-04-04] MEDS ORDERED: heparin 1,000 units/ml 10ml inj ICATH ONE (13:40)
[2017-04-04] MEDS ORDERED: fentaNYL/PF 50MCG/1 ML 2ML syringe ONE (14:09)
[2017-04-04] MEDS ORDERED: heparin 1,000unit/ml 10ml vial 10 ML ONE (14:19)
[2017-04-04 16:46] LABS: BASOPHILS % (AUTO) 0.1 % (0-1); EOSINOPHILS # (AUTO) 0.2 X10'3 (0-0.9); EOSINOPHILS % (AUTO) 1.6 % (0-6); HEMOGLOBIN 7.2 g/dl (14.0-17.9); LYMPHOCYTES # (AUTO) 0.8 X10'3 (1.1-4.8); LYMPHOCYTES % (AUTO) 5.5 % (21-51); MEAN CORPUSCULAR HEMOGLOBIN 31.2 PG (27.0-31.0); MEAN CORPUSCULAR HGB CONC 34.8 % (33.0-36.5); MEAN CORPUSCULAR VOLUME 89.6 FL (78-98); MEAN PLATELET VOLUME 8.5 FL (7.4-10.4); MONOCYTES # (AUTO) 0.9 X10'3 (0-0.9); MONOCYTES % (AUTO) 6.6 % (2-12); NEUTROPHILS # (AUTO) 12.2 X10'3 (1.8-7.7); NEUTROPHILS % (AUTO) 86.2 % (42-75); PLATELET COUNT 138 X10'3 (140-440); RED CELL DISTRIBUTION WIDTH 17.4 % (11.5-14.5); WHITE BLOOD COUNT 14.1 X10'3 (4.5-11.0)
[2017-04-04 17:09] LABS: HEMATOCRIT 20.6 % (42.0-52.0)
[2017-04-04] MEDS: insulin glargine (Lantus) pen - multi-dose SQ SCH (21:00)
[2017-04-04] MEDS ORDERED: diphenhydrAMINE 50 mg/ml inj IV ONE (22:00)
[2017-04-04 22:49] LABS: HEMATOCRIT 24.4 % (42.0-52.0); HEMOGLOBIN 8.4 g/dl (14.0-17.9); MEAN CORPUSCULAR HEMOGLOBIN 31.3 PG (27.0-31.0); MEAN CORPUSCULAR HGB CONC 34.6 % (33.0-36.5); MEAN CORPUSCULAR VOLUME 90.6 FL (78-98); MEAN PLATELET VOLUME 8.4 FL (7.4-10.4); PLATELET COUNT 140 X10'3 (140-440); RED BLOOD COUNT 2.69 X10'6 (4.70-6.10); RED CELL DISTRIBUTION WIDTH 17.1 % (11.5-14.5); WHITE BLOOD COUNT 17.1 X10'3 (4.5-11.0)
[2017-04-05] VITALS (24 sets, daily range): BP systolic 90–127; BP diastolic 50–83
[2017-04-05] MEDS: HYDROcodone/acetaminophen 10/325mg tab PO PRN ×6 (01:59→21:37)
[2017-04-05] MEDS: VANCOMYCIN LEVEL IV SCH (03:00)
[2017-04-05 04:36] LABS: BASOPHILS % (AUTO) 0.4 % (0-1); EOSINOPHILS # (AUTO) 0.1 X10'3 (0-0.9); EOSINOPHILS % (AUTO) 0.8 % (0-6); HEMATOCRIT 24.2 % (42.0-52.0); HEMOGLOBIN 8.2 g/dl (14.0-17.9); LYMPHOCYTES # (AUTO) 0.8 X10'3 (1.1-4.8); LYMPHOCYTES % (AUTO) 6.1 % (21-51); MEAN CORPUSCULAR HEMOGLOBIN 30.9 PG (27.0-31.0); MEAN CORPUSCULAR HGB CONC 33.9 % (33.0-36.5); MEAN CORPUSCULAR VOLUME 91.1 FL (78-98); MEAN PLATELET VOLUME 8.4 FL (7.4-10.4); MONOCYTES # (AUTO) 0.7 X10'3 (0-0.9); MONOCYTES % (AUTO) 5.3 % (2-12); NEUTROPHILS # (AUTO) 11.8 X10'3 (1.8-7.7); NEUTROPHILS % (AUTO) 87.4 % (42-75); PLATELET COUNT 126 X10'3 (140-440); RED BLOOD COUNT 2.66 X10'6 (4.70-6.10); RED CELL DISTRIBUTION WIDTH 17.5 % (11.5-14.5); WHITE BLOOD COUNT 13.5 X10'3 (4.5-11.0)
[2017-04-05 04:51] LABS: ALANINE AMINOTRANSFERASE 216 U/L (12-78); ALBUMIN/GLOBULIN RATIO 1.2 (1.1-1.5); ALKALINE PHOSPHATASE 42 IU/L (46-116); ANION GAP 10 (8-16); ASPARTATE AMINO TRANSFERASE 74 U/L (10-37); BILIRUBIN,TOTAL 0.6 MG/DL (0.1-1.0); BLOOD UREA NITROGEN 85 MG/DL (7-18); BUN/CREATININE RATIO 28.3 (5.4-32.0); CALCIUM 6.3 MG/DL (8.5-10.1); CHLORIDE 104 MMOL/L (99-107); GLUCOSE 114 MG/DL (70-104); MAGNESIUM 2.2 MG/DL (1.5-2.4); PHOSPHORUS 7.2 MG/DL (2.3-4.5); POTASSIUM 4.3 MMOL/L (3.5-5.1); PREALBUMIN 44.6 MG/DL (19-36); SODIUM 138 MMOL/L (135-145); TOTAL CARBON DIOXIDE 23.8 MMOL/L (24-32); TOTAL PROTEIN 5.6 G/DL (6.4-8.2); TRIGLYCERIDES 218 MG/DL (20-135); VANCOMYCIN,RANDOM 15.2 UG/ML; eGFR 24 ML/MIN
[2017-04-05 04:54] LABS: NUCLEATED RED BLOOD CELLS 2 /100WBC (0-0); TOTAL CELLS COUNTED 100
[2017-04-05 05:12] LABS: ANISOCYTOSIS 2+; PLATELET ESTIMATE DECREASED; POLYCHROMASIA 1+; TEAR DROP CELLS FEW
[2017-04-05] MEDS: methylnaltrexone br 12mg/0.6ml inj***SubQ only SQ SCH (06:42)
[2017-04-05] MEDS: tacrolimus anhydrous 1mg capsule PO SCH ×2 (08:00→20:20)
[2017-04-05] MEDS: predniSONE 5mg tablet PO SCH (08:00)
[2017-04-05] MEDS: lactobacillus rhamnosus 10,000 MMU CELLS/CAPSULE PO SCH ×2 (08:01→17:34)
[2017-04-05] MEDS: multivitamins, therapeutics tablet PO SCH (08:01)
[2017-04-05] MEDS: pantoprazole 40mg Tablet.DR PO SCH (08:01)
[2017-04-05] MEDS: apixaban 2.5mg tablet PO SCH ×2 (08:01→20:19)
[2017-04-05] MEDS: mycophenolate mofetil 250mg capsule PO SCH ×2 (08:01→20:20)
[2017-04-05] MEDS: gabapentin 300mg capsule PO SCH ×2 (08:01→20:19)
[2017-04-05] MEDS: cefTAZidime inj 2 GM in normal saline 100ml IV soln 100 ML IV SCH (08:02)
[2017-04-05] MEDS ORDERED: heparin 1,000 units/ml 10ml inj HE ONE (16:10)
[2017-04-05] MEDS: famotidine 20mg tablet PO SCH (20:20)
[2017-04-05] MEDS: insulin glargine (Lantus) pen - multi-dose SQ SCH (20:22)
[2017-04-05] MEDS ORDERED: diphenhydrAMINE 25mg capsule PO ONE (23:10)
[2017-04-06] VITALS (21 sets, daily range): BP systolic 70–132; BP diastolic 52–86
[2017-04-06] MEDS: HYDROcodone/acetaminophen 10/325mg tab PO PRN ×4 (01:27→17:59)
[2017-04-06] MEDS: VANCOMYCIN LEVEL IV SCH (03:00)
[2017-04-06 06:03] LABS: BASOPHILS % (AUTO) 0 % (0-1); EOSINOPHILS # (AUTO) 0.3 X10'3 (0-0.9); EOSINOPHILS % (AUTO) 2.8 % (0-6); HEMATOCRIT 22.5 % (42.0-52.0); HEMOGLOBIN 7.7 g/dl (14.0-17.9); LYMPHOCYTES # (AUTO) 0.7 X10'3 (1.1-4.8); LYMPHOCYTES % (AUTO) 6.5 % (21-51); MEAN CORPUSCULAR HEMOGLOBIN 31.6 PG (27.0-31.0); MEAN CORPUSCULAR HGB CONC 34.3 % (33.0-36.5); MEAN CORPUSCULAR VOLUME 92.3 FL (78-98); MEAN PLATELET VOLUME 8.6 FL (7.4-10.4); MONOCYTES # (AUTO) 0.6 X10'3 (0-0.9); MONOCYTES % (AUTO) 5.5 % (2-12); NEUTROPHILS # (AUTO) 9.8 X10'3 (1.8-7.7); NEUTROPHILS % (AUTO) 85.2 % (42-75); PLATELET COUNT 116 X10'3 (140-440); RED BLOOD COUNT 2.43 X10'6 (4.70-6.10); RED CELL DISTRIBUTION WIDTH 17.7 % (11.5-14.5); WHITE BLOOD COUNT 11.5 X10'3 (4.5-11.0)
[2017-04-06 06:48] LABS: ALANINE AMINOTRANSFERASE 274 U/L (12-78); ALBUMIN 2.9 G/DL (3.4-5.0); ALBUMIN/GLOBULIN RATIO 1.1 (1.1-1.5); ALKALINE PHOSPHATASE 40 IU/L (46-116); ANION GAP 15 (8-16); ASPARTATE AMINO TRANSFERASE 74 U/L (10-37); BILIRUBIN,TOTAL 0.5 MG/DL (0.1-1.0); BLOOD UREA NITROGEN 93 MG/DL (7-18); BUN/CREATININE RATIO 24.5 (5.4-32.0); CHLORIDE 104 MMOL/L (99-107); GLUCOSE 100 MG/DL (70-104); MAGNESIUM 2.3 MG/DL (1.5-2.4); POTASSIUM 4.4 MMOL/L (3.5-5.1); SODIUM 140 MMOL/L (135-145); TOTAL CARBON DIOXIDE 21.4 MMOL/L (24-32); TOTAL PROTEIN 5.6 G/DL (6.4-8.2); VANCOMYCIN,RANDOM 11.1 UG/ML; eGFR 18 ML/MIN
[2017-04-06 07:20] LABS: CALCIUM 5.8 MG/DL (8.5-10.1)
[2017-04-06] MEDS: lactobacillus rhamnosus 10,000 MMU CELLS/CAPSULE PO SCH ×2 (09:19→17:59)
[2017-04-06] MEDS: apixaban 2.5mg tablet PO SCH ×2 (09:19→20:35)
[2017-04-06] MEDS: predniSONE 5mg tablet PO SCH (09:19)
[2017-04-06] MEDS: gabapentin 300mg capsule PO SCH ×2 (09:19→20:35)
[2017-04-06] MEDS: tacrolimus anhydrous 1mg capsule PO SCH ×2 (09:20→20:35)
[2017-04-06] MEDS: multivitamins, therapeutics tablet PO SCH (09:21)
[2017-04-06] MEDS: mycophenolate mofetil 250mg capsule PO SCH ×2 (09:21→20:35)
[2017-04-06] MEDS: famotidine 20mg tablet PO SCH ×2 (09:21→20:35)
[2017-04-06] MEDS: calcium acetate 667mg (PhosLO) capsule PO SCH ×2 (13:00→19:18)
[2017-04-06] MEDS ORDERED: heparin 1,000 units/ml 10ml inj HE ONE ×2 (15:50→16:35)
[2017-04-06] MEDS: Melatonin 3mg tablet PO SCH (20:35)
[2017-04-06] MEDS: insulin glargine (Lantus) pen - multi-dose SQ SCH (21:00)
[2017-04-06] MEDS: oxyCODONE/APAP 10/325mg tablet PO PRN (22:09)
[2017-04-06] MEDS ORDERED: HYDROmorphone inj. 0.5 MG/0.5 ML DISP.SYRIN IV PRN (22:55)
[2017-04-06] MEDS ORDERED: HYDROmorphone 2mg/ml vial IV PRN (23:05)
[2017-04-07] MEDS ORDERED: HYDROmorphone 1 mg/ml syringe ONE ×3 (01:24→05:22)
[2017-04-07] MEDS: VANCOMYCIN LEVEL IV SCH (03:00)
[2017-04-07] MEDS: oxyCODONE/APAP 10/325mg tablet PO PRN ×3 (03:11→12:42)
[2017-04-07 06:00] VITALS: BP 110/73
[2017-04-07 06:04] LABS: BASOPHILS % (AUTO) 0.1 % (0-1); EOSINOPHILS # (AUTO) 0.3 X10'3 (0-0.9); EOSINOPHILS % (AUTO) 3.2 % (0-6); HEMOGLOBIN 7.5 g/dl (14.0-17.9); LYMPHOCYTES # (AUTO) 0.6 X10'3 (1.1-4.8); LYMPHOCYTES % (AUTO) 5.7 % (21-51); MEAN CORPUSCULAR HEMOGLOBIN 31.8 PG (27.0-31.0); MEAN CORPUSCULAR HGB CONC 34.4 % (33.0-36.5); MEAN CORPUSCULAR VOLUME 92.2 FL (78-98); MEAN PLATELET VOLUME 8.6 FL (7.4-10.4); MONOCYTES # (AUTO) 0.6 X10'3 (0-0.9); MONOCYTES % (AUTO) 5.8 % (2-12); NEUTROPHILS % (AUTO) 85.2 % (42-75); PLATELET COUNT 129 X10'3 (140-440); RED BLOOD COUNT 2.35 X10'6 (4.70-6.10); RED CELL DISTRIBUTION WIDTH 18.7 % (11.5-14.5); WHITE BLOOD COUNT 10.6 X10'3 (4.5-11.0)
[2017-04-07 06:13] LABS: ALANINE AMINOTRANSFERASE 244 U/L (12-78); ALKALINE PHOSPHATASE 46 IU/L (46-116); ANION GAP 14 (8-16); ASPARTATE AMINO TRANSFERASE 53 U/L (10-37); BILIRUBIN,TOTAL 0.5 MG/DL (0.1-1.0); BLOOD UREA NITROGEN 97 MG/DL (7-18); BUN/CREATININE RATIO 23.7 (5.4-32.0); CHLORIDE 105 MMOL/L (99-107); GLUCOSE 118 MG/DL (70-104); MAGNESIUM 2.3 MG/DL (1.5-2.4); POTASSIUM 4.3 MMOL/L (3.5-5.1); SODIUM 140 MMOL/L (135-145); TOTAL CARBON DIOXIDE 20.9 MMOL/L (24-32); TOTAL PROTEIN 5.9 G/DL (6.4-8.2); VANCOMYCIN,RANDOM 26.2 UG/ML; eGFR 16 ML/MIN
[2017-04-07 06:16] LABS: CALCIUM 5.4 MG/DL (8.5-10.1)
[2017-04-07 06:20] LABS: HEMATOCRIT 21.7 % (42.0-52.0)
[2017-04-07] MEDS: multivitamins, therapeutics tablet PO SCH (07:30)
[2017-04-07] MEDS: lactobacillus rhamnosus 10,000 MMU CELLS/CAPSULE PO SCH ×2 (07:30→17:31)
[2017-04-07] MEDS: predniSONE 5mg tablet PO SCH (07:30)
[2017-04-07] MEDS: apixaban 2.5mg tablet PO SCH ×2 (07:31→19:53)
[2017-04-07] MEDS: gabapentin 300mg capsule PO SCH ×2 (07:31→19:53)
[2017-04-07] MEDS: famotidine 20mg tablet PO SCH ×2 (07:31→19:53)
[2017-04-07] MEDS: tacrolimus anhydrous 1mg capsule PO SCH ×2 (07:32→21:38)
[2017-04-07] MEDS: mycophenolate mofetil 250mg capsule PO SCH ×2 (07:32→19:53)
[2017-04-07] MEDS: calcium acetate 667mg (PhosLO) capsule PO SCH ×3 (07:32→17:31)
[2017-04-07] MEDS: cefTAZidime inj 2 GM in normal saline 100ml IV soln 100 ML IV SCH (07:33)
[2017-04-07] MEDS: methylnaltrexone br 12mg/0.6ml inj***SubQ only SQ SCH (07:34)
[2017-04-07] MEDS: HYDROmorphone 1 mg/ml syringe IV PRN ×2 (10:10→14:28)
[2017-04-07 11:00] VITALS: BP 106/68
[2017-04-07] MEDS: fentaNYL 75 MCG/hour patch.TD72 TD SCH (11:34)
[2017-04-07] MEDS ORDERED: epoetin 20,000 units/ml inj SQ ONE (12:00)
[2017-04-07] MEDS: PARoxetine 20mg tablet PO SCH (12:42)
[2017-04-07 15:00] VITALS: BP 158/95
[2017-04-07 15:10] LABS: OCCULT BLOOD STOOL POSITIVE (Neg)
[2017-04-07 19:00] VITALS: BP 107/63
[2017-04-07] MEDS: HYDROcodone/acetaminophen 10/325mg tab PO PRN (19:48)
[2017-04-07] MEDS: insulin glargine (Lantus) pen - multi-dose SQ SCH (21:00)
[2017-04-07] MEDS: Melatonin 3mg tablet PO SCH (21:38)
[2017-04-07] MEDS: HYDROmorphone 2mg/ml vial IV PRN (22:12)
[2017-04-07 23:00] VITALS: BP 127/67
[2017-04-08 03:00] VITALS: BP 127/67
[2017-04-08] MEDS: VANCOMYCIN LEVEL IV SCH (03:00)
[2017-04-08] MEDS: HYDROmorphone 2mg/ml vial IV PRN (04:03)
[2017-04-08 06:00] VITALS: BP 113/66
[2017-04-08 07:00] LABS: ALBUMIN 2.9 G/DL (3.4-5.0); ANION GAP 13 (8-16); BLOOD UREA NITROGEN 91 MG/DL (7-18); BUN/CREATININE RATIO 26.8 (5.4-32.0); CHLORIDE 104 MMOL/L (99-107); GLUCOSE 104 MG/DL (70-104); POTASSIUM 4.6 MMOL/L (3.5-5.1); SODIUM 136 MMOL/L (135-145); VANCOMYCIN,RANDOM 16.2 UG/ML; eGFR 20 ML/MIN
[2017-04-08 07:03] LABS: CALCIUM 5.5 MG/DL (8.5-10.1)
[2017-04-08 07:05] LABS: BASOPHILS % (AUTO) 0 % (0-1); EOSINOPHILS # (AUTO) 0.2 X10'3 (0-0.9); EOSINOPHILS % (AUTO) 2.3 % (0-6); HEMATOCRIT 22.2 % (42.0-52.0); HEMOGLOBIN 7.5 g/dl (14.0-17.9); LYMPHOCYTES # (AUTO) 0.6 X10'3 (1.1-4.8); LYMPHOCYTES % (AUTO) 6.3 % (21-51); MEAN CORPUSCULAR HEMOGLOBIN 31.5 PG (27.0-31.0); MEAN CORPUSCULAR HGB CONC 33.8 % (33.0-36.5); MEAN CORPUSCULAR VOLUME 93.3 FL (78-98); MEAN PLATELET VOLUME 8.5 FL (7.4-10.4); MONOCYTES # (AUTO) 0.8 X10'3 (0-0.9); MONOCYTES % (AUTO) 7.8 % (2-12); NEUTROPHILS # (AUTO) 8.1 X10'3 (1.8-7.7); NEUTROPHILS % (AUTO) 83.6 % (42-75); PLATELET COUNT 123 X10'3 (140-440); RED BLOOD COUNT 2.38 X10'6 (4.70-6.10); RED CELL DISTRIBUTION WIDTH 18.4 % (11.5-14.5); WHITE BLOOD COUNT 9.7 X10'3 (4.5-11.0)
[2017-04-08] MEDS: calcium acetate 667mg (PhosLO) capsule PO SCH ×3 (07:48→17:50)
[2017-04-08] MEDS: tacrolimus anhydrous 1mg capsule PO SCH ×2 (07:48→21:58)
[2017-04-08] MEDS: predniSONE 5mg tablet PO SCH (07:48)
[2017-04-08] MEDS: mycophenolate mofetil 250mg capsule PO SCH ×2 (07:48→19:55)
[2017-04-08] MEDS: lactobacillus rhamnosus 10,000 MMU CELLS/CAPSULE PO SCH ×2 (07:49→17:49)
[2017-04-08] MEDS: apixaban 2.5mg tablet PO SCH ×2 (07:49→19:55)
[2017-04-08] MEDS: multivitamins, therapeutics tablet PO SCH (07:49)
[2017-04-08] MEDS: famotidine 20mg tablet PO SCH ×2 (07:49→19:55)
[2017-04-08] MEDS: gabapentin 300mg capsule PO SCH ×2 (07:49→19:55)
[2017-04-08] MEDS: PARoxetine 20mg tablet PO SCH (07:49)
[2017-04-08] MEDS: HYDROcodone/acetaminophen 10/325mg tab PO PRN (08:05)
[2017-04-08] MEDS ORDERED: calcium acetate 667mg (PhosLO) capsule PO SCH (10:10)
[2017-04-08 11:00] VITALS: BP 98/63
[2017-04-08] MEDS: calcitriol 0.25mcg capsule PO SCH (12:52)
[2017-04-08] MEDS: HYDROmorphone 2mg tablet PO PRN ×2 (12:54→22:00)
[2017-04-08 15:00] VITALS: BP 106/64
[2017-04-08] MEDS: oxyCODONE/APAP 10/325mg tablet PO PRN ×2 (15:50→19:55)
[2017-04-08 19:00] VITALS: BP 124/58
[2017-04-08] MEDS: insulin glargine (Lantus) pen - multi-dose SQ SCH (21:00)
[2017-04-08] MEDS: Melatonin 3mg tablet PO SCH (21:57)
[2017-04-08 23:08] VITALS: BP 94/62
[2017-04-09] MEDS: oxyCODONE/APAP 10/325mg tablet PO PRN ×4 (01:50→21:47)
[2017-04-09 03:00] VITALS: BP 107/61
[2017-04-09 06:30] VITALS: BP 127/86
[2017-04-09] MEDS: methylnaltrexone br 12mg/0.6ml inj***SubQ only SQ SCH (08:00)
[2017-04-09] MEDS: lactobacillus rhamnosus 10,000 MMU CELLS/CAPSULE PO SCH ×2 (08:21→17:11)
[2017-04-09] MEDS: calcitriol 0.25mcg capsule PO SCH (08:21)
[2017-04-09] MEDS: mycophenolate mofetil 250mg capsule PO SCH ×2 (08:22→21:41)
[2017-04-09] MEDS: calcium acetate 667mg (PhosLO) capsule PO SCH ×3 (08:22→18:25)
[2017-04-09] MEDS: PARoxetine 20mg tablet PO SCH (08:22)
[2017-04-09] MEDS: apixaban 2.5mg tablet PO SCH ×2 (08:22→21:40)
[2017-04-09] MEDS: famotidine 20mg tablet PO SCH ×2 (08:22→21:40)
[2017-04-09] MEDS: predniSONE 5mg tablet PO SCH (08:22)
[2017-04-09] MEDS: gabapentin 300mg capsule PO SCH ×2 (08:22→21:40)
[2017-04-09] MEDS: multivitamins, therapeutics tablet PO SCH (08:23)
[2017-04-09] MEDS: tacrolimus anhydrous 1mg capsule PO SCH ×2 (08:23→21:40)
[2017-04-09 11:00] VITALS: BP 139/49
[2017-04-09] MEDS: HYDROmorphone 2mg tablet PO PRN (11:50)
[2017-04-09 15:00] VITALS: BP 107/43
[2017-04-09 19:00] VITALS: BP 120/68
[2017-04-09] MEDS: insulin glargine (Lantus) pen - multi-dose SQ SCH (21:00)
[2017-04-09] MEDS: Melatonin 3mg tablet PO SCH (21:40)
[2017-04-09 22:54] VITALS: BP 94/52
[2017-04-10] VITALS (14 sets, daily range): BP systolic 89–128; BP diastolic 53–79
[2017-04-10] MEDS: oxyCODONE/APAP 10/325mg tablet PO PRN ×5 (02:35→20:06)
[2017-04-10 05:18] LABS: BASOPHILS % (AUTO) 0.3 % (0-1); EOSINOPHILS # (AUTO) 0.2 X10'3 (0-0.9); EOSINOPHILS % (AUTO) 3.5 % (0-6); LYMPHOCYTES # (AUTO) 0.5 X10'3 (1.1-4.8); LYMPHOCYTES % (AUTO) 8.3 % (21-51); MEAN CORPUSCULAR HEMOGLOBIN 31.5 PG (27.0-31.0); MEAN CORPUSCULAR VOLUME 92.5 FL (78-98); MONOCYTES # (AUTO) 0.5 X10'3 (0-0.9); MONOCYTES % (AUTO) 7.3 % (2-12); NEUTROPHILS # (AUTO) 5.1 X10'3 (1.8-7.7); NEUTROPHILS % (AUTO) 80.6 % (42-75); PLATELET COUNT 136 X10'3 (140-440); RED BLOOD COUNT 2.06 X10'6 (4.70-6.10); WHITE BLOOD COUNT 6.3 X10'3 (4.5-11.0)
[2017-04-10 05:39] LABS: HEMATOCRIT 19.1 % (42.0-52.0); HEMOGLOBIN 6.5 g/dl (14.0-17.9)
[2017-04-10 05:47] LABS: ALANINE AMINOTRANSFERASE 110 U/L (12-78); ALBUMIN 2.7 G/DL (3.4-5.0); ALBUMIN/GLOBULIN RATIO 0.8 (1.1-1.5); ALKALINE PHOSPHATASE 42 IU/L (46-116); ANION GAP 11 (8-16); ASPARTATE AMINO TRANSFERASE 25 U/L (10-37); BILIRUBIN,TOTAL 0.4 MG/DL (0.1-1.0); BLOOD UREA NITROGEN 93 MG/DL (7-18); BUN/CREATININE RATIO 27.4 (5.4-32.0); CHLORIDE 106 MMOL/L (99-107); GLUCOSE 97 MG/DL (70-104); POTASSIUM 4.3 MMOL/L (3.5-5.1); SODIUM 139 MMOL/L (135-145); TOTAL PROTEIN 5.9 G/DL (6.4-8.2); eGFR 20 ML/MIN
[2017-04-10 06:43] LABS: CALCIUM 5.9 MG/DL (8.5-10.1)
[2017-04-10] MEDS: predniSONE 5mg tablet PO SCH (08:14)
[2017-04-10] MEDS: apixaban 2.5mg tablet PO SCH ×2 (08:15→20:04)
[2017-04-10] MEDS: calcitriol 0.25mcg capsule PO SCH (08:15)
[2017-04-10] MEDS: famotidine 20mg tablet PO SCH ×2 (08:15→20:04)
[2017-04-10] MEDS: multivitamins, therapeutics tablet PO SCH (08:15)
[2017-04-10] MEDS: gabapentin 300mg capsule PO SCH ×2 (08:15→20:04)
[2017-04-10] MEDS: tacrolimus anhydrous 1mg capsule PO SCH ×2 (08:15→21:44)
[2017-04-10] MEDS: calcium acetate 667mg (PhosLO) capsule PO SCH ×3 (08:16→18:47)
[2017-04-10] MEDS: mycophenolate mofetil 250mg capsule PO SCH ×2 (08:17→20:05)
[2017-04-10] MEDS: lactobacillus rhamnosus 10,000 MMU CELLS/CAPSULE PO SCH ×2 (08:22→17:12)
[2017-04-10] MEDS: fentaNYL 75 MCG/hour patch.TD72 TD SCH (11:15)
[2017-04-10] MEDS: epoetin 20,000 units/ml inj SQ SCH (17:14)
[2017-04-10] MEDS ORDERED: heparin 1,000 units/ml 10ml inj HE ONE (17:55)
[2017-04-10 20:07] LABS: HEMATOCRIT 24.6 % (42.0-52.0); HEMOGLOBIN 8.5 g/dl (14.0-17.9); MEAN CORPUSCULAR HEMOGLOBIN 31.2 PG (27.0-31.0); MEAN CORPUSCULAR HGB CONC 34.5 % (33.0-36.5); MEAN CORPUSCULAR VOLUME 90.5 FL (78-98); MEAN PLATELET VOLUME 8.1 FL (7.4-10.4); PLATELET COUNT 151 X10'3 (140-440); RED BLOOD COUNT 2.71 X10'6 (4.70-6.10); RED CELL DISTRIBUTION WIDTH 19.1 % (11.5-14.5); WHITE BLOOD COUNT 8.3 X10'3 (4.5-11.0)
[2017-04-10 20:29] LABS: % IRON SATURATION 22 % (11-46); IRON 44 UG/DL (53-167); TOTAL IRON BINDING CAPACITY 203 UG/DL (259-388)
[2017-04-10] MEDS: insulin glargine (Lantus) pen - multi-dose SQ SCH (21:00)
[2017-04-10 21:25] LABS: OCCULT BLOOD STOOL NEGATIVE (Neg)
[2017-04-10] MEDS: Melatonin 3mg tablet PO SCH (21:45)
[2017-04-11 03:00] VITALS: BP 112/66
[2017-04-11] MEDS: oxyCODONE/APAP 10/325mg tablet PO PRN ×4 (03:22→21:41)
[2017-04-11 05:19] LABS: BASOPHILS % (AUTO) 0.1 % (0-1); EOSINOPHILS # (AUTO) 0.3 X10'3 (0-0.9); EOSINOPHILS % (AUTO) 3.8 % (0-6); HEMATOCRIT 23.7 % (42.0-52.0); HEMOGLOBIN 8.2 g/dl (14.0-17.9); LYMPHOCYTES # (AUTO) 0.6 X10'3 (1.1-4.8); LYMPHOCYTES % (AUTO) 8.2 % (21-51); MEAN CORPUSCULAR HGB CONC 34.5 % (33.0-36.5); MEAN CORPUSCULAR VOLUME 89.8 FL (78-98); MEAN PLATELET VOLUME 8.1 FL (7.4-10.4); MONOCYTES # (AUTO) 0.4 X10'3 (0-0.9); MONOCYTES % (AUTO) 6.3 % (2-12); NEUTROPHILS # (AUTO) 5.7 X10'3 (1.8-7.7); NEUTROPHILS % (AUTO) 81.6 % (42-75); PLATELET COUNT 139 X10'3 (140-440); RED BLOOD COUNT 2.64 X10'6 (4.70-6.10); RED CELL DISTRIBUTION WIDTH 19.8 % (11.5-14.5)
[2017-04-11 05:42] LABS: ALANINE AMINOTRANSFERASE 80 U/L (12-78); ALBUMIN 2.5 G/DL (3.4-5.0); ALBUMIN/GLOBULIN RATIO 0.7 (1.1-1.5); ALKALINE PHOSPHATASE 41 IU/L (46-116); ANION GAP 12 (8-16); ASPARTATE AMINO TRANSFERASE 17 U/L (10-37); BILIRUBIN,TOTAL 0.4 MG/DL (0.1-1.0); BLOOD UREA NITROGEN 82 MG/DL (7-18); BUN/CREATININE RATIO 27.3 (5.4-32.0); CALCIUM 6.2 MG/DL (8.5-10.1); CHLORIDE 110 MMOL/L (99-107); GLUCOSE 103 MG/DL (70-104); POTASSIUM 4.4 MMOL/L (3.5-5.1); SODIUM 144 MMOL/L (135-145); TOTAL CARBON DIOXIDE 21.9 MMOL/L (24-32); TOTAL PROTEIN 5.9 G/DL (6.4-8.2); eGFR 24 ML/MIN
[2017-04-11 06:30] VITALS: BP 103/58
[2017-04-11] MEDS: methylnaltrexone br 12mg/0.6ml inj***SubQ only SQ SCH (08:00)
[2017-04-11] MEDS: tacrolimus anhydrous 1mg capsule PO SCH ×2 (08:36→21:41)
[2017-04-11] MEDS: mycophenolate mofetil 250mg capsule PO SCH ×2 (08:37→19:34)
[2017-04-11] MEDS: calcium acetate 667mg (PhosLO) capsule PO SCH ×3 (08:38→17:37)
[2017-04-11] MEDS: calcitriol 0.25mcg capsule PO SCH (08:38)
[2017-04-11] MEDS: lactobacillus rhamnosus 10,000 MMU CELLS/CAPSULE PO SCH ×2 (08:39→17:37)
[2017-04-11] MEDS: apixaban 2.5mg tablet PO SCH (08:39)
[2017-04-11] MEDS: gabapentin 300mg capsule PO SCH ×2 (08:39→19:34)
[2017-04-11] MEDS: famotidine 20mg tablet PO SCH ×2 (08:39→19:34)
[2017-04-11] MEDS: predniSONE 5mg tablet PO SCH (08:40)
[2017-04-11] MEDS: multivitamins, therapeutics tablet PO SCH (08:40)
[2017-04-11 11:00] VITALS: BP 116/73
[2017-04-11 15:00] VITALS: BP 106/69
[2017-04-11 19:00] VITALS: BP 118/67
[2017-04-11] MEDS: insulin glargine (Lantus) pen - multi-dose SQ SCH (21:00)
[2017-04-11] MEDS: Melatonin 3mg tablet PO SCH (21:40)
[2017-04-11 23:00] VITALS: BP 130/49
[2017-04-12] MEDS: oxyCODONE/APAP 10/325mg tablet PO PRN ×3 (02:09→12:29)
[2017-04-12 03:00] VITALS: BP 124/77
[2017-04-12 05:30] VITALS: BP 113/72
[2017-04-12 07:02] LABS: PREALBUMIN 33.2 MG/DL (19-36)
[2017-04-12] MEDS: lactobacillus rhamnosus 10,000 MMU CELLS/CAPSULE PO SCH (07:41)
[2017-04-12] MEDS: mycophenolate mofetil 250mg capsule PO SCH (07:41)
[2017-04-12] MEDS: calcitriol 0.25mcg capsule PO SCH (07:41)
[2017-04-12] MEDS: famotidine 20mg tablet PO SCH (07:42)
[2017-04-12] MEDS: predniSONE 5mg tablet PO SCH (07:42)
[2017-04-12] MEDS: calcium acetate 667mg (PhosLO) capsule PO SCH ×2 (07:42→15:45)
[2017-04-12] MEDS: gabapentin 300mg capsule PO SCH (07:42)
[2017-04-12] MEDS: multivitamins, therapeutics tablet PO SCH (07:43)
[2017-04-12] MEDS: tacrolimus anhydrous 1mg capsule PO SCH (07:43)
[2017-04-12 10:13] LABS: BASOPHILS % (AUTO) 0.7 % (0-1); EOSINOPHILS # (AUTO) 0.2 X10'3 (0-0.9); EOSINOPHILS % (AUTO) 3.4 % (0-6); HEMATOCRIT 23.9 % (42.0-52.0); HEMOGLOBIN 8.1 g/dl (14.0-17.9); LYMPHOCYTES # (AUTO) 0.4 X10'3 (1.1-4.8); LYMPHOCYTES % (AUTO) 6.4 % (21-51); MEAN CORPUSCULAR HEMOGLOBIN 30.7 PG (27.0-31.0); MEAN CORPUSCULAR VOLUME 90.3 FL (78-98); MEAN PLATELET VOLUME 7.7 FL (7.4-10.4); MONOCYTES # (AUTO) 0.4 X10'3 (0-0.9); MONOCYTES % (AUTO) 5.6 % (2-12); NEUTROPHILS # (AUTO) 5.3 X10'3 (1.8-7.7); NEUTROPHILS % (AUTO) 83.9 % (42-75); PLATELET COUNT 152 X10'3 (140-440); RED BLOOD COUNT 2.65 X10'6 (4.70-6.10); RED CELL DISTRIBUTION WIDTH 19.7 % (11.5-14.5); WHITE BLOOD COUNT 6.3 X10'3 (4.5-11.0)
[2017-04-12 10:25] LABS: ALANINE AMINOTRANSFERASE 68 U/L (12-78); ALBUMIN 2.7 G/DL (3.4-5.0); ALBUMIN/GLOBULIN RATIO 0.8 (1.1-1.5); ALKALINE PHOSPHATASE 48 IU/L (46-116); ANION GAP 13 (8-16); ASPARTATE AMINO TRANSFERASE 17 U/L (10-37); BILIRUBIN,TOTAL 0.4 MG/DL (0.1-1.0); BLOOD UREA NITROGEN 78 MG/DL (7-18); CALCIUM 6.3 MG/DL (8.5-10.1); CHLORIDE 108 MMOL/L (99-107); GLUCOSE 129 MG/DL (70-104); PHOSPHORUS 4.3 MG/DL (2.3-4.5); POTASSIUM 4.5 MMOL/L (3.5-5.1); SODIUM 143 MMOL/L (135-145); TOTAL CARBON DIOXIDE 21.8 MMOL/L (24-32); TOTAL PROTEIN 6.2 G/DL (6.4-8.2); eGFR 24 ML/MIN
[2017-04-12 11:30] VITALS: BP 124/65
[2017-04-12] MEDS ORDERED: fentaNYL 75 MCG/hour patch.TD72 TD SCH (12:00)
[2017-04-12] MEDS ORDERED: CALC0.2535 PO (15:24)
[2017-04-12] MEDS ORDERED: PHO667C PO (15:24)
[2017-04-12] MEDS ORDERED: FAMO20TA8 PO (15:24)
[2017-04-12] MEDS ORDERED: APIX2.5T PO ×2 (15:24→15:25)
[2017-04-12] MEDS ORDERED: apixaban 2.5mg tablet PO ONE (15:25)
[2017-04-12] MEDS: epoetin 20,000 units/ml inj SQ SCH (16:49)
== END 2017-04-12 17:05 | disposition home health service (06) | DRG 853 ==
LOC: CICU 2S 04:43 → PCU 3S 04-06 20:00
PROVIDERS: ATTEND Internal Medicine Critical Care Medicine
PROC: 5A1955Z Respiratory Ventilation, Greater than 96 Consecutive Hours (ICD-10-PCS; 2017-03-24)
PROC: 0BH17EZ Insertion of Endotracheal Airway into Trachea, Via Natural or Artificial Opening (ICD-10-PCS; 2017-03-24)
PROC: 0X6B0ZZ Detachment at Right Elbow Region, Open Approach (ICD-10-PCS; principal; 2017-03-26 16:41)
PROC: 5A1D70Z Performance of Urinary Filtration, Intermittent, Less than 6 Hours Per Day (ICD-10-PCS; 2017-03-27)
PROC: 06HM33Z Insertion of Infusion Device into Right Femoral Vein, Percutaneous Approach (ICD-10-PCS; 2017-03-27)
PROC: 5A1D70Z Performance of Urinary Filtration, Intermittent, Less than 6 Hours Per Day (ICD-10-PCS; 2017-03-28)
PROC: 30233N1 Transfusion of Nonautologous Red Blood Cells into Peripheral Vein, Percutaneous Approach (ICD-10-PCS; 2017-03-29)
PROC: 5A1D70Z Performance of Urinary Filtration, Intermittent, Less than 6 Hours Per Day (ICD-10-PCS; 2017-03-29)
PROC: 5A1D90Z Performance of Urinary Filtration, Continuous, Greater than 18 hours Per Day (ICD-10-PCS; 2017-03-30)
PROC: 5A1D70Z Performance of Urinary Filtration, Intermittent, Less than 6 Hours Per Day (ICD-10-PCS; 2017-04-03)
PROC: 0JHL3XZ Insertion of Tunneled Vascular Access Device into Right Upper Leg Subcutaneous Tissue and Fascia, Percutaneous Approach (ICD-10-PCS; 2017-04-04)
PROC: 06H033Z Insertion of Infusion Device into Inferior Vena Cava, Percutaneous Approach (ICD-10-PCS; 2017-04-04)
PROC: B5191ZA Fluoroscopy of Inferior Vena Cava using Low Osmolar Contrast, Guidance (ICD-10-PCS; 2017-04-04)
DX: A41.9 Sepsis, unspecified organism (principal); J96.00 Acute respiratory failure, unspecified whether with hypoxia or hypercapnia; R57.9 Shock, unspecified; G93.41 Metabolic encephalopathy; N17.9 Acute kidney failure, unspecified; K92.2 Gastrointestinal hemorrhage, unspecified; I12.0 Hypertensive chronic kidney disease with stage 5 chronic kidney disease or end stage renal disease; Q79.3 Gastroschisis; N18.6 End stage renal disease; M62.82 Rhabdomyolysis; Z94.0 Kidney transplant status; L03.90 Cellulitis, unspecified; I70.298 Other atherosclerosis of native arteries of extremities, other extremity; E87.5 Hyperkalemia; E83.51 Hypocalcemia; J45.909 Unspecified asthma, uncomplicated; D64.9 Anemia, unspecified; G89.29 Other chronic pain; M91.90 Juvenile osteochondrosis of hip and pelvis, unspecified, unspecified leg; N14.1 Nephropathy induced by other drugs, medicaments and biological substances; E87.70 Fluid overload, unspecified; H53.40 Unspecified visual field defects; T50.8X5A Adverse effect of diagnostic agents, initial encounter; F12.90 Cannabis use, unspecified, uncomplicated; F17.200 Nicotine dependence, unspecified, uncomplicated; Z99.2 Dependence on renal dialysis; Z79.899 Other long term (current) drug therapy; Z88.8 Allergy status to other drugs, medicaments and biological substances; Z87.440 Personal history of urinary (tract) infections; Z86.73 Personal history of transient ischemic attack (TIA), and cerebral infarction without residual deficits
CPT/HCPCS: 36221; 36415; 36558; 36600; 70450; 71045; 75710; 75827; 76937; 77001; 80048; 80053; 80069; 80202; 81001; 82272; 82330; 82550; 82803; 82948; 83036; 83540; 83550; 83605; 83735; 84100; 84134; 84478; 84484; 85018; 85025; 85027; 85610; 85730; 86644; 86885; 86900; 86901; 86920; 86945; 87040; 87070; 87088; 87340; 88307; 88311; 93005; 93308; 93931; 93971; 94002; 94003; 94640; 94760; 97116; 97162; 97530; 99152; 99153; A4357; A4421; A4620; A6213; A6222; A6223; A6251; A6257; A6446; A6449; A7000; A7015; A9270; C1750; C1751; C1760; C1769; C1894; C9113; G0257; J0330; J0713; J0885; J1170; J1200; J1644; J1815; J1940; J2001; J2150; J2250; J2405; J2543; J2704; J2920; J2930; J2997; J3010; J3370; J3490; J7030; J7040; J7507; J7512; J7517; P9016; P9047; Q0163; Q9967